=== PATIENT | female | born 1940 | race Caucasian/White ===

== ENCOUNTER 2018-02-15 10:29 | Inpatient (IN) | payer OTHER, MEDICARE ==
[~2018-02-15] VITALS: Ht 160 cm; Wt 84.5 kg
[~2018-02-15 10:29] MED LIST: ALLEGRA ALLERG180 M1 PO; ANAGRELIDE HCL1 MG PO; ASPIR 8181 MG PO; ASPIRIN EC81 M1 PO; HYDROXYUREA500 MG PO; LASIX20 M1 PO; LOPRESSOR100 M1 PO; LOPRESSOR50 M1 PO; LOSARTAN POTASS50 MG PO; METOPROLOL TAR100 MG PO; PANTOPRAZOLE SO40 M1 PO; PANTOPRAZOLE SO40 MG PO; SIMVASTATIN40 M1 PO; SIMVASTATIN40 MG PO; SINGULAIR10 M1 PO; SYNTHROID0.025 MG PO; SYNTHROID75 MCG PO; SYNTHROID88 MCG PO; TYLENOL EXTRA500 M2 PO; WARFARIN SODIUM5 M1 PO
--- NOTE | 2018-02-15 10:42 | ED CARDIAC/CP/PALPITATIONS ---
History of Present Illness General Chief Complaint: General Adult Stated Complaint: SIB JAGDISH FOR EVAL OF? INDIGESTION Source: patient, old records Exam Limitations: no limitations Vital Signs & Intake/Output Vital Signs & Intake/Output ED Intake and Output 02/18 0000 02/17 1200 Intake Total 1000 Output Total Balance 1000 Intake, IV 600 Intake, Oral 400 Allergies Coded Allergies: clams (Mild, NAUSEA 11/08/17) tomato (Mild, NAUSEA 02/15/18) RAW TOMATOS Triage Note: PT SENT IN BY DR. KUMAR. PT STATES SHE HAS HAD INDIGESTION FOR THE PAST FEW DAYS WITH NO RELIEF WITH ANTACID BUT DOES WITH APAP. PT WAS SPEAKING TO AND HE WANTER HER EVALUATED IN ED TO R/O CARDIAC VS INTIGESTION. PT ALSO HAD BACK ACHE AROUND HER WAIST. Triage Nurses Notes Reviewed? yes Onset: Gradual Duration: waxing and waning Timing: recent history Location: epigastric Radiation: back Activities at Onset: none HPI: PT IS A 77 left-sided mastectomy, aortic valve replacement (bovine valve 4 years ago), hypertension, hyperlipidemia, thrombocytosis AND NEW ONSET AFIB X 3 MONTHS AGO ON [place] who presents emergency room with concerns of a four-day history of gradual onset of epigastric indigestion which she states that symptoms usually are worsens after posterior prodromal eating or drinking, patient has radiation to her back pain. Patient states that she tried Pepto-Bismol without improvement of symptoms however Tylenol does improve symptoms last Tylenol was 8 AM today. Patient denies any fever chest pain arm pain jaw pain nausea vomiting diaphoresis leg swelling hemoptysis cough dysuria hematuria vaginal bleeding or discharge. Last bowel movement was in the last 24 hours no blood no melena noted normal bowel movements reported. Denies any exertional chest pain or shortness of breath, denies any leg swelling hemoptysis history of DVT or PE Denies any significant NSAID use Patient drinks one glass of wine a day (Dayan MALLORY,Sohan) Reconcile Medications Acetaminophen (Tylenol Extra Strength) 500 MG TABLET 1 TAB PO DAILY PRN muscle aches (Reported) Amlodipine Bes/Olmesartan Med (Amlodipine-Olmesartan 5-20 MG) 5 MG-20 MG TABLET 1 TAB PO DAILY HEART (Reported) Fexofenadine HCl (Zofia Allergy) 180 MG TABLET 1 TAB PO DAILY PRN nasal allergies (Reported) Fluticasone Propionate 50 MCG/ACTUATION SPRAY.SUSP 2 SPRAY NASB DAILY PRN ALLERGIES (Reported) Furosemide (Lasix) 20 MG TABLET 1 TAB PO DAILY FLUID RETENTION Levothyroxine Sodium (Synthroid) 75 MCG TABLET 1 TAB PO Q48 THYROID HEALTH ( Reported) Levothyroxine Sodium (Synthroid) 88 MCG TABLET 1 TAB PO Q48 THYROID HEALTH Metoprolol Tartrate (Lopressor) 100 MG TABLET 1 TAB PO BID Atrial Fibrilliation Montelukast Sodium (Singulair) 10 MG TABLET 1 TAB PO QHS nasal allergies ( Reported) Pantoprazole Sodium 40 MG TABLET.DR 1 TAB PO DAILY ACID REFLUX Simvastatin (Simvastatin*) 40 MG TABLET 1 TAB PO DAILY HEART HEALTH Warfarin Sodium (Coumadin) 5 MG TABLET 0.5 TAB PO SuTh BLOOD THINNER ( Reported) Warfarin Sodium (Coumadin) 5 MG TABLET 1 TAB PO MoTuWeFrSa BLOOD THINNER ( Reported) (Mary PERRY,Claudia) Past History Travel History Traveled to [place] past 21 day No Medical History Any Pertinent Medical History? see below for history Cardiovascular: AFIB, VALVE REPLACEMENT Renal: chronic kidney disease Musculoskeletal: L MASTECTOMY Endocrine: NONE Blood Disorders: essential thrombocythemia Cancer(s): breast cancer History of MRSA: No History of VRE: No History of CDIFF: No Surgical History Surgical History: VALVE REPLACEMENT Psychosocial History Who do you live with Significant Other Services at Home None What is your primary language German Tobacco Use: Never used ETOH Use: occasional use Illicit Drug Use: denies illicit drug use Family History Hx Contributory? No (Sohan Ugalde) Review of Systems Review of Systems Constitutional: Reports: no symptoms. EENTM: Reports: no symptoms. Respiratory: Reports: no symptoms. Cardiovascular: Reports: no symptoms. GI: Reports: see HPI, abdominal pain. Genitourinary: Reports: no symptoms. Musculoskeletal: Reports: no symptoms. Skin: Reports: no symptoms. Neurological/Psychological: Reports: no symptoms. Hematologic/Endocrine: Reports: no symptoms. Immunologic/Allergic: Reports: no symptoms. All Other Systems: Reviewed and Negative (Sohan Ugalde) Physical Exam Physical Exam General Appearance: no apparent distress, alert, comfortable Head: atraumatic Eyes: Bilateral: normal appearance. Ears, Nose, Throat: hearing grossly normal Neck: normal inspection Respiratory: normal breath sounds, chest non-tender Cardiovascular: regular rate/rhythm, systolic murmur Peripheral Pulses: 2+ radial (R) Gastrointestinal: RUQ AND EPIGASTRIC PAIN NO RIGHT LOWER QUADRANT PAIN NO PERITONEAL SIGNS Extremities: normal inspection Skin: intact, normal color Core Measures ACS in differential dx? Yes CVA/TIA Diagnosis No Sepsis Present: No Sepsis Focused Exam Completed? No (Dayan MALLORY,Sohan) Progress Differential Diagnosis: AMI, aortic dissection, atrial fibrillation, cholecystitis, CHF/pulm edema, costochondritis, hyperkalemia, hypovolemia, hyperthyroid, hyperventilation, intracranial hemorrhage, myocarditis, pancreatitis, pericarditis, pneumonia, pneumothorax, PSVT, pulmonary embolism, PUD/GERD, PVCs/PACs, respiratory failure, sepsis, unstable angina, V-fib/V-Tach, WPW syndrome Plan of Care: Orders Procedure Date/time Status Consistent Carbohydrate 2 02/17 L Complete PROTHROMBIN TIME 02/17 1017 Complete Discharge Patient 02/17 UNK Active Laboratory Tests 02/17/18 1040: PT 39.6 H, INR 3.59 H Patient on initial presentation was resting comfortable at bedside patient has concerned her right upper quadrant and epigastric pain upon palpation, clear lungs auscultation Patient declines pain medications when offered Patient was reevaluated on multiple occasions and continues to deny any medications for pain. After concerns of pancreatitis were noted patient was updated on a blood work ultrasound and CAT scan showed acute pancreatitis aND UPON ADMISSION THERE IS NO ETIOLOGY OF PATIENT'S PANCREATITIS. Discussed admission with patient and family members were aware and agree and have no questions Diagnostic Imaging: Viewed by Me: Ultrasound. Radiology Impression: acute abnormality Initial ED EK BPM,NSR Comments: PATIENT: SYLVIA GEORGE PRESENT AGE: 77 PATIENT ACCOUNT NO: [id number] : 42 LOCATION: [facility] ORDERING PHYSICIAN: Sohan MALLORY SERVICE DATE: 02/15/18124 EXAM TYPE: CAT - CT ABD & PELVIS W/O IV CONTRAS EXAMINATION: CT ABDOMEN AND PELVIS WITHOUT CONTRAST CLINICAL INFORMATION: 77-year-old female patient with epigastric pain, pancreatitis, and history of cancer. COMPARISON: Ultrasound of the abdomen done today. (3 mm pancreatic duct. Normal kidneys. Normal CBD. Normal gallbladder. Normal liver. CTA of the chest on 11/08/2017. TECHNIQUE: Multidetector volumetric imaging was performed from the superior aspect of the liver through the pubic symphysis. Sagittal and coronal reformatted images were obtained on the technologist's workstation. DLP: 536 mGy-cm FINDINGS: GRAPHIC USER INTERFACE DESIGNER: The cardiac silhouette is prominent. Previous sternotomy has been performed and sternotomy wires are intact. An AVR is in place. There is no evidence of intestinal obstruction. LUNG BASES: Mild dependent atelectasis is seen in both lower lobes. Subpleural lymph nodes are present in the minor fissure, unchanged. The 6 mm nodule in the left lower lobe is unchanged. Series 3, image 123. A 5 mm nodule in the right lower lobe posterior cuts were sulcus is unchanged. Series 3, image 66. The 9 mm subpleural nodule in the left lower lobe has resolved. Coronary calcification is present. There is no adenopathy or pleural effusion. LIVER, GALLBLADDER, AND BILIARY TREE: The liver is normal in size, shape, and attenuation. No focal hepatic lesion or biliary ductal dilatation is present. The gallbladder is unremarkable with no evidence of radiopaque gallstones, gallbladder wall thickening, or obvious pericholecystic inflammatory changes. PANCREAS: The head and neck of the pancreas are swollen. There is evidence of early peripancreatic effusion in the pancreatic bed. Effusion dissects into the root of the mesentery. There is reactive thickening of the left anterior aspect of Gerota's fascia. Mild stranding extends into the transverse mesocolon and into the lesser sac. No pseudocyst formation. No extraluminal gas. SPLEEN: Unremarkable. ADRENAL GLANDS: Unremarkable. KIDNEYS AND URETERS: The kidneys are normal in size, shape, and attenuation. No hydronephrosis, hydroureter, or calculi seen. No perinephric stranding. Both renal pelves are extrarenal in location. BLADDER: Well distended and normal. GASTROINTESTINAL TRACT: The small and large bowel are unremarkable. The appendix is unremarkable. No free air. ABDOMINAL WALL: No significant hernia is appreciated. A small fat-containing umbilical hernia is present. LYMPH NODES: Small periaortic lymph nodes of no consequence. VASCULAR: Scattered calcific plaques are seen throughout an otherwise normal-appearing aorta. PELVIC VISCERA: The anteverted uterus is postmenopausal in size and shape. The adnexa are normal. No free fluid is seen. OSSEOUS STRUCTURES: Numerous thoracic osteophytes. Disc disease at T11-T12. IMPRESSION: Acute pancreatitis with spread of pancreatic effusions as described above. No complications present at this time. Lung nodules as described on the CTA of 11/08/2017, no change. DICTATED BY: Sharif Malhotra MD DATE/TIME DICTATED:02/15/181422 ASSOCIATE DEAN:RIVAS PATIENT: SYLVIA GEORGE PRESENT AGE: 77 PATIENT ACCOUNT NO: [id number] : 42 LOCATION: ER ORDERING PHYSICIAN: Sohan MALLORY SERVICE DATE: 02/15/18 EXAM TYPE: US - US-COMPLETE ABDOMEN EXAMINATION: US ABDOMEN COMPLETE CLINICAL INFORMATION: Right upper quadrant and epigastric pain.. COMPARISON: None available. TECHNIQUE: Real-time imaging of the abdominal viscera. FINDINGS: PANCREAS: Mild prominence of the pancreatic duct which measures 0.3 cm at the level of the pancreatic body. The pancreas is otherwise unremarkable. ABDOMINAL AORTA: The proximal segment is normal in caliber. INFERIOR VENA CAVA: Visualized portions are normal. LIVER: Normal. The liver demonstrates normal size, contour and echogenicity. No focal lesion or intrahepatic biliary duct dilatation. GALLBLADDER: Normal. The gallbladder is physiologically distended without evidence of stones, sludge, polyps, wall thickening or pericholecystic fluid. COMMON BILE DUCT: Normal in caliber measuring 0.6 cm in diameter. RIGHT KIDNEY: Normal. No hydronephrosis. No renal calculi or focal parenchymal lesions. The kidney measures 10.5 cm in maximum dimension. LEFT KIDNEY: Normal. No hydronephrosis. No renal calculi or focal parenchymal lesions. The kidney measures 11.2 cm in maximum dimension. SPLEEN: Normal. The spleen measures 9.9 cm in maximum dimension. FREE FLUID: None. IMPRESSION: Mild prominence of the pancreatic duct which measures 0.3 cm at the level of the pancreatic body. Otherwise unremarkable abdominal ultrasound. DICTATED BY: Devante Lau MD DATE/TIME DICTATED:02/15/181244 ASSOCIATE DEAN:RIVAS DATE/TIME TRANSCRIBED:02/15/181244 (Dayan MALLORY,Sohan) Departure Departure Disposition: STILL A PATIENT Condition: Stable Clinical Impression Primary Impression: Pancreatitis Referrals: Angelica Houser MD (PCP/Family) Departure Forms: Customer Survey General Discharge Information Admission Note Spoke With: Viv Kumar MD Documentation of Exam: Documentation of any treatments & extenuating circumstances including Concerns Regarding Discharge (functional status, medication knowledge or non-compliance, living conditions, etc.) that warrant an admission rather than observation: [ Patient requires bowel rest repeat labs IV fluids gastroenterology consultation pain management] (Sohan Ugalde) PA/IT INVESTMENT/PORTFOLIO MANAGER Co-Sign Statement Statement: ED Attending supervision documentation- [X] I saw and evaluated the patient. I have also reviewed all the pertinent lab results and diagnostic results. I agree with the findings and the plan of care as documented in the PA's/IT INVESTMENT/PORTFOLIO MANAGER's documentation. [X] I have reviewed the ED Record and agree with the PA's/IT INVESTMENT/PORTFOLIO MANAGER's documentation. [] Additions or exceptions (if any) to the PAs/IT INVESTMENT/PORTFOLIO MANAGER's note and plan are summarized below: [] (Mary PERRY,Claudia) Critical Care Note Critical Care Note Critical Care Time: non-applicable (Sohan Ugalde) General Discharge Information Admission Note Spoke With: Stacy PERRY,Viv Stewart Documentation of Exam: Documentation of any treatments & extenuating circumstances including Concerns Regarding Discharge (functional status, medication knowledge or non-compliance, living conditions, etc.) that warrant an admission rather than observation: [ Patient requires bowel rest repeat labs IV fluids gastroenterology consultation pain management] Critical Care Note Critical Care Note Critical Care Time: non-applicable
[2018-02-15] MEDS ORDERED: FLUTICASONE PRO16 GM NASB (10:58)
[2018-02-15 11:01] LABS: ABSOLUTE BASOPHIL COUNT 0.1 /CUMM (0.0-0.2); ABSOLUTE EOSINOPHIL COUNT 0.5 /CUMM (0.0-0.7); ABSOLUTE GRANULOCYTE CT 10.9 /CUMM (1.4-6.5); ABSOLUTE LYMPH COUNT 2.7 /CUMM (1.2-3.4); ABSOLUTE MONOCYTE COUNT 0.9 /CUMM (0.10-0.60); BASOPHIL % 0.6 % (0.0-2.0); GRANULOCYTE % 72.1 % (42.2-75.2); MEAN CORPUSCULAR HGB 27.5 PG (27.0-31.0); MEAN CORPUSCULAR HGB CONC 32.3 G/DL (33.0-37.0); MEAN CORPUSCULAR VOLUME 85.3 FL (81.0-99.0); MEAN PLATELET VOLUME 8.2 FL (7.4-10.4); PLATELET COUNT 640 /CUMM (130-400); RBC DISTRIBUTION WIDTH 19.4 % (11.5-14.5); RED BLOOD CELL CT 3.41 /CUMM (4.20-5.40); WHITE BLOOD CELL COUNT 15.1 /CUMM (4.8-10.8)
[2018-02-15] MEDS ORDERED: COUMADIN5 M2 PO ×2 (11:01→11:02)
[2018-02-15] MEDS ORDERED: AMLODIPINE-OLM1 EACH PO (11:02)
[2018-02-15 11:11] LABS: PT 29.3 SEC (9.4-12.5); PTT 35 SEC (25-37)
--- NOTE | 2018-02-15 12:51 | ULTRASOUND REPORT ---
EXAMINATION: US ABDOMEN COMPLETE CLINICAL INFORMATION: Right upper quadrant and epigastric pain.. COMPARISON: None available. TECHNIQUE: Real-time imaging of the abdominal viscera. FINDINGS: PANCREAS: Mild prominence of the pancreatic duct which measures 0.3 cm at the level of the pancreatic body. The pancreas is otherwise unremarkable. ABDOMINAL AORTA: The proximal segment is normal in caliber. INFERIOR VENA CAVA: Visualized portions are normal. LIVER: Normal. The liver demonstrates normal size, contour and echogenicity. No focal lesion or intrahepatic biliary duct dilatation. GALLBLADDER: Normal. The gallbladder is physiologically distended without evidence of stones, sludge, polyps, wall thickening or pericholecystic fluid. COMMON BILE DUCT: Normal in caliber measuring 0.6 cm in diameter. RIGHT KIDNEY: Normal. No hydronephrosis. No renal calculi or focal parenchymal lesions. The kidney measures 10.5 cm in maximum dimension. LEFT KIDNEY: Normal. No hydronephrosis. No renal calculi or focal parenchymal lesions. The kidney measures 11.2 cm in maximum dimension. SPLEEN: Normal. The spleen measures 9.9 cm in maximum dimension. FREE FLUID: None. IMPRESSION: Mild prominence of the pancreatic duct which measures 0.3 cm at the level of the pancreatic body. Otherwise unremarkable abdominal ultrasound.
--- NOTE | 2018-02-15 14:54 | CT SCAN REPORT ---
EXAMINATION: CT ABDOMEN AND PELVIS WITHOUT CONTRAST CLINICAL INFORMATION: 77-year-old female patient with epigastric pain, pancreatitis, and history of cancer. COMPARISON: Ultrasound of the abdomen done today. (3 mm pancreatic duct. Normal kidneys. Normal CBD. Normal gallbladder. Normal liver. CTA of the chest on 11/08/2017. TECHNIQUE: Multidetector volumetric imaging was performed from the superior aspect of the liver through the pubic symphysis. Sagittal and coronal reformatted images were obtained on the technologist's workstation. DLP: 536 mGy-cm FINDINGS: QUALITY CONTROL ANALYST: The cardiac silhouette is prominent. Previous sternotomy has been performed and sternotomy wires are intact. An AVR is in place. There is no evidence of intestinal obstruction. LUNG BASES: Mild dependent atelectasis is seen in both lower lobes. Subpleural lymph nodes are present in the minor fissure, unchanged. The 6 mm nodule in the left lower lobe is unchanged. Series 3, image 123. A 5 mm nodule in the right lower lobe posterior cuts were sulcus is unchanged. Series 3, image 66. The 9 mm subpleural nodule in the left lower lobe has resolved. Coronary calcification is present. There is no adenopathy or pleural effusion. LIVER, GALLBLADDER, AND BILIARY TREE: The liver is normal in size, shape, and attenuation. No focal hepatic lesion or biliary ductal dilatation is present. The gallbladder is unremarkable with no evidence of radiopaque gallstones, gallbladder wall thickening, or obvious pericholecystic inflammatory changes. PANCREAS: The head and neck of the pancreas are swollen. There is evidence of early peripancreatic effusion in the pancreatic bed. Effusion dissects into the root of the mesentery. There is reactive thickening of the left anterior aspect of Gerota's fascia. Mild stranding extends into the transverse mesocolon and into the lesser sac. No pseudocyst formation. No extraluminal gas. SPLEEN: Unremarkable. ADRENAL GLANDS: Unremarkable. KIDNEYS AND URETERS: The kidneys are normal in size, shape, and attenuation. No hydronephrosis, hydroureter, or calculi seen. No perinephric stranding. Both renal pelves are extrarenal in location. BLADDER: Well distended and normal. GASTROINTESTINAL TRACT: The small and large bowel are unremarkable. The appendix is unremarkable. No free air. ABDOMINAL WALL: No significant hernia is appreciated. A small fat-containing umbilical hernia is present. LYMPH NODES: Small periaortic lymph nodes of no consequence. VASCULAR: Scattered calcific plaques are seen throughout an otherwise normal-appearing aorta. PELVIC VISCERA: The anteverted uterus is postmenopausal in size and shape. The adnexa are normal. No free fluid is seen. OSSEOUS STRUCTURES: Numerous thoracic osteophytes. Disc disease at T11-T12. IMPRESSION: Acute pancreatitis with spread of pancreatic effusions as described above. No complications present at this time. Lung nodules as described on the CTA of 11/08/2017, no change.
--- NOTE | 2018-02-15 15:49 | History & Physical ---
Roxanne Novoa 02/15/18 1547: General Information and HPI MD Statement: I have seen and personally examined SYLVIA GEORGE and documented this H&P. The patient is a 77 year old F who presented with a patient stated chief complaint of abdominal pain. Source of Information: patient, family Exam Limitations: no limitations History of Present Illness: Ms George is a 77 year old woman with PMHx of AVR (bovine valve 2013 at [facility]), left breast cancer s/p mastectomy + adj chemo(dx'ed 20 yrs ago), HTN, HLD, ET/MPN (dx'ed 10 yrs ago, initially on Hydroxyurea, and was started on Anagrelide 06/2017), chronic anemia 2/2 hydroxyurea/anagrelide, paroxysmal atrial fibrillation ( dx'ed 10/2017 on Warfarin), who came to the hospital with a chief concern of "indigestion" that started 4 days ago. She was in her usual state of health until 4 days ago, and started " indigestion " and vague abdominal discomfort, no aggravating factors but dicomfort relieved after taking protonix+tylenol. She did not have any fever. She had her breakfast the am of admission, and felt that she had nausea when she called her remote sensing specialist who advised her to go to the ER. She did not have any cough, fever, dyspnea or palpitations. No jaundice, carmina, or brbpr and no changes in apetite. Reported chronic pedal edema. Reported occassional alcohol( a glass of wine ) use 2-3 x/wk, no tobacco use, or has history of gall stones. Reported that she was started on anagrelide in , and frequency was increased recently. Allergies/Medications Allergies: Coded Allergies: clams (Mild, NAUSEA 11/08/17) tomato (Mild, NAUSEA 02/15/18) RAW TOMATOS Home Med list Acetaminophen (Tylenol Extra Strength) 500 MG TABLET 1 TAB PO DAILY PRN muscle aches (Reported) Amlodipine Bes/Olmesartan Med (Amlodipine-Olmesartan 5-20 MG) 5 MG-20 MG TABLET 1 TAB PO DAILY HEART (Reported) Anagrelide HCl 1 MG CAPSULE 1 CAP PO TID THROMBOCYTOSIS (Reported) Fexofenadine HCl (Zofia Allergy) 180 MG TABLET 1 TAB PO DAILY PRN nasal allergies (Reported) Fluticasone Propionate 50 MCG/ACTUATION SPRAY.SUSP 2 SPRAY NASB DAILY PRN ALLERGIES (Reported) Furosemide (Lasix) 20 MG TABLET 1 TAB PO DAILY FLUID RETENTION Levothyroxine Sodium (Synthroid) 75 MCG TABLET 1 TAB PO Q48 THYROID HEALTH ( Reported) Levothyroxine Sodium (Synthroid) 88 MCG TABLET 1 TAB PO Q48 THYROID HEALTH Metoprolol Tartrate (Lopressor) 100 MG TABLET 1 TAB PO BID Atrial Fibrilliation Montelukast Sodium (Singulair) 10 MG TABLET 1 TAB PO QHS nasal allergies ( Reported) Pantoprazole Sodium 40 MG TABLET.DR 1 TAB PO DAILY ACID REFLUX Simvastatin (Simvastatin*) 40 MG TABLET 1 TAB PO DAILY HEART HEALTH Warfarin Sodium (Coumadin) 5 MG TABLET 0.5 TAB PO SuTh BLOOD THINNER ( Reported) Warfarin Sodium (Coumadin) 5 MG TABLET 1 TAB PO MoTuWeFrSa BLOOD THINNER ( Reported) Past History Travel History Traveled to [place] past 21 day No Medical History Cardiovascular: AFIB, VALVE REPLACEMENT Renal: chronic kidney disease Musculoskeletal: L MASTECTOMY Endocrine: NONE Blood Disorders: essential thrombocythemia Cancer(s): breast cancer History of MRSA: No History of VRE: No History of CDIFF: No Surgical History Surgical History: VALVE REPLACEMENT Past Family/Social History Family History Relations & Conditions if any MOTHER (heart disease). Psychosocial History Services at Home: None ETOH Use: occasional use Illicit Drug Use: denies illicit drug use Functional Ability ADLs Independent: dressing, eating, toileting, bathing. Ambulation: independent IADLs Unknown: shopping, housework, finances, food prep, telephone, transportation, medication admin. Review of Systems Review of Systems Constitutional: Reports: see HPI. EENTM: Denies: icterus, epistaxis. Cardiovascular: Reports: peripheral edema. Denies: chest pain, orthopena, palpitations. Respiratory: Denies: cough, short of breath. GI: Reports: nausea. Denies: abdominal pain, distention, melena, bloody stool, changes in stool, vomiting, steatorrhea. Genitourinary: Denies: dysuria. Musculoskeletal: Denies: back pain. Skin: Denies: change in skin color. Hematologic/Endocrine: Denies: bruising. Exam & Diagnostic Data Last 24 Hrs of Vital Signs/I&O Vital Signs Date Time Temp Pulse Resp B/P B/P Pulse O2 O2 Flow FiO2 Mean Ox Delivery Rate 02/15 1711 96.8 87 19 183/85 96 Room Air 02/15 1232 98.2 89 20 135/80 99 Room Air 02/15 1039 98.0 98 18 149/80 99 Room Air Intake & Output 02/15 1600 02/15 0800 02/15 0000 Intake Total Output Total Balance Patient 180 lb Weight Weight Reported by Patient Measurement Method Physical Exam General Appearance Alert, Oriented X3, Cooperative, No Acute Distress Skin No Rashes, No Breakdown, No Significant Lesion Skin Temp/Moisture Exam: Warm/Dry Sepsis Skin Exam (color): Normal for Ethnicity HEENT Atraumatic, PERRLA, EOMI, Mucous Membr. moist/pink Neck Supple, No JVD, No thryomegaly, +2 Carotid Pulse wo Bruit Lymphatic Axillary nl, Cervical nl Cardiovascular Regular Rate, Normal S1, Normal S2, systolic murmur Lungs Normal Air Movement Abdomen Normal Bowel Sounds, Soft, No Hepatospenomegaly, No Masses, abdominal tenderness on deep palpation in epigastric region Neurological Normal Speech, Strength at 5/5 X4 Ext, Normal Tone, Sensation Intact, Cranial Nerves 3-12 NL Extremities No Clubbing, No Cyanosis, Normal Pulses, No Tenderness/Swelling, pedal edema 2+ Vascular Pulses Symmetrical Sepsis Peripheral Pulse Location: Dorsalis Pedis Sepsis Peripheral Pulse Exam: Normal Sepsis Cap Refill Exam: <2 Sec Last 24 Hrs of Labs/Jhony: Laboratory Tests 02/15/18 1050: Anion Gap 13, Estimated GFR 54 L, BUN/Creatinine Ratio 23.0, Glucose 215 H, Lactic Acid 1.2, Calcium 9.0, Total Bilirubin 0.5, AST 22, ALT 17, Alkaline Phosphatase 67, Lactate Dehydrogenase 738 H, Troponin I < 0.01, Total Protein 5.9 L, Albumin 3.3 L, Globulin 2.6, Albumin/Globulin Ratio 1.3, Triglycerides 88, Cholesterol 116, LDL Cholesterol, Calc 47 L, HDL Cholesterol 52, Cholesterol/HDL Ratio 2.2, Amylase 276 H, Lipase 4936 H, PT 29.3 H, INR 2.66 H, APTT 35, CBC w Diff MAN DIFF ORDERED, RBC 3.41 L, MCV 85.3, MCH 27.5, MCHC 32.3 L, RDW 19.4 H, MPV 8.2, Gran % 72.1, Lymphocytes % 18.1 L, Monocytes % 6.2, Eosinophils % 3.0, Basophils % 0.6, Absolute Granulocytes 10.9 H, Absolute Lymphocytes 2.7, Absolute Monocytes 0.9 H, Absolute Eosinophils 0.5, Absolute Basophils 0.1, Platelet Estimate , Polychromasia , Hypochromic-Microcytic 1+ , Poikilocytosis 2+, Anisocytosis 2+, Ovalocytes Diagnostic Data EKG Results Normal sinus rhythm, heart rate 79, left axis deviation, left anterior fascicular block, no ST-T wave changes. Other Results CT abdomen and pelvis without contrast: LIVER, GALLBLADDER, AND BILIARY TREE: The liver is normal in size, shape, and attenuation. No focal hepatic lesion or biliary ductal dilatation is present. The gallbladder is unremarkable with no evidence of radiopaque gallstones, gallbladder wall thickening, or obvious pericholecystic inflammatory changes. PANCREAS: The head and neck of the pancreas are swollen. There is evidence of early peripancreatic effusion in the pancreatic bed. Effusion dissects into the root of the mesentery. There is reactive thickening of the left anterior aspect of Gerota's fascia. Mild stranding extends into the transverse mesocolon and into the lesser sac. No pseudocyst formation. No extraluminal gas. Acute pancreatitis with spread of pancreatic effusions as described above. No complications present at this time. Lung nodules as described on the CTA of 11/08/2017, no change. US - US-COMPLETE ABDOMEN Mild prominence of the pancreatic duct which measures 0.3 cm at the level of the pancreatic body. Otherwise unremarkable abdominal ultrasound. Assessment/Plan Assessment: Ms George is a 77 year old woman with PMHx of AVR (bovine valve 2013 at [facility]), left breast cancer s/p mastectomy + adj chemo(dx'ed 20 yrs ago), HTN, HLD, ET/MPN (dx'ed 10 yrs ago, initially on Hydroxyurea, and was started on Anagrelide 06/2017), chronic anemia 2/2 hydroxyurea/anagrelide, paroxysmal atrial fibrillation ( dx'ed 10/2017 on Warfarin), who came to the hospital with a chief concern of "indigestion" that started 4 days ago likely due to acute pancreatitis, without any clear etiology at this time. At the time of admission-temperature 98.0, pulse rate 98, respiration 18, blood pressure 149/80, 99% on room air. Pertinent lab findings: WBC 15.1 (without any granulocytosis), hemoglobin 9.4 (baseline around 9.5), platelets 640 (chronic thrombocytosis), sodium 139, potassium 4.7, BUN 23, serum creatinine 1.1, glucose 215, lactic acid 1.2, total bilirubin 0.5, AST 22, ALT 17, INR 2.66. troponin I-0.01 amylase 276, lipase 4936, CT scan abdomen: PANCREAS: The head and neck of the pancreas are swollen. There is evidence of early peripancreatic effusion in the pancreatic bed. Effusion dissects into the root of the mesentery. There is reactive thickening of the left anterior aspect of Gerota's fascia. Mild stranding extends into the transverse mesocolon and into the lesser sac. No pseudocyst formation. No extraluminalA. cute pancreatitis with spread of pancreatic effusions as described above. No complications present at this time. Last echocardiogram done in October 2017 revealed left vent Ejection fraction of about 55%, with mild left atrial dilatation. She also has mild mitral stenosis and moderate tricuspid regurgitation with right ventricle are systolic pressure about 50 mmHg. Problem list: #1 acute pancreatitis #2 essential thrombocytosis #3 hypothyroidism #4 atrial fibrillation (paroxysmal) #5 history of hypothyroidism #6 hypertension #7 hyperlipidemia #8 leukocytosis- likely MPN. #9 lung nodules Etiology in her case with elevated lipase, abdominal discomfort and positive findings on CAT scan suggestive of pancreatic edema likely point towards acute pancreatitis. The reason for this pancreatitis is unclear at this time, with no history of alcohol, smoking, gallstones or hypertriglyceridemia contributing to pathogenesis. It is likely that anagrelide could be contributing to pancreatitis in her case, but incidence of pancreatitis in the setting is unclear to us. Other causes such as combination of hyperlipidemia and hyperglycemia could also be contributing to pancreatitis. BISAP score is one. Also signficance of pancreatic dilation w/o cbd dilation is unclear, but acute pancreatitis could cause the dilation to clear the secretions. In regards to her pedal edema, this could most likely be due to elevated right heart pressures. Plan: #1 start intravenous fluids, with 100 mL an hour. Reassess the need for more fluids. #2 she should get up to 3-4 L in the first 24 hours, but considering her cardiac history should give her fluids with caution. #3 continue her metoprolol, to avoid rebound tachycardia #4 she should be nothing by mouth for now, but would advance to clear liquid diet as the patient tolerates. #5 given the history of atrial fibrillation, she should be admitted to telemetry. #6 cardiology consult to be obtained. #7 continue Coumadin at her home dosing. INR 2.66. It should be kept in mind, that there could be a complication of hemorrhagic pancreatitis. Cullens and mccarthy turners negative at this time. #8 continue her home dose of levothyroxine. #9 for now hold amlodipine, Lasix and ARB. Resume as the BP allows. #10 GI consult to be obtained in the a.m. #11 if she develops any respiratory decompensation, need for fluids to be reassessed and she needs to be evaluated clinically. #12. Check LDH to calculate Vienna score #13 Accu-Cheks given her elevated blood glucose. #14 hold for anagrelide for now. Defer the decision to the senior engineering technician to restart. #15 check CBCs in the a.m. #16 adequate pain control, with tramadol and Tylenol. Avoid morphine in pancreatitis. #17 given history of valvular disease, and atrial fibrillation she should be monitored on telemetry. If she improves in the next 24-48hrs, telemetry could be discontinued. Housekeeping: #1 DVT prophylaxis-Coumadin #2 GI prophylaxis-protonix #3 CODE STATUS-full code #4 medication reconciliation-done As Ranked By This Provider Problem List: 1. Pancreatitis 2. Anemia Core Measures/Misc (08/14) Acute Coronary Syndrome ACS Diagnosis: No Congestive Heart Failure Congestive Heart Failure Diagnosis No Cerebrovascular Accident CVA/TIA Diagnosis: No VTE (View Protocol) VTE Risk Factors No risk factors No Mechanical VTE Prophylaxis d/t N/A MechProphylax Ordered No VTE Pharm Prophylaxis d/t NA PharmProphylax ordered Sepsis (View protocol) Sepsis Present: No Viv Kumar MD 02/15/18 1638: Attending MD Review Statement Attending Statement Attending MD Statement: examined this patient, discuss w/resident/PA/GOLD LETTERER, agreed w/resident/PA/GOLD LETTERER, reviewed EMR data (avail), discussed with nursing, discussed with case mgmt, reviewed images Attending Assessment/Plan: 77-year-old female fairly extensive past medical history including atrial fibrillation on Coumadin, bovine aortic valve replacement, [id number] mitral stenosis, hypertension and essential thrombocytosis on anagrelide. She is now comes in with what appears to be acute pancreatitis of unclear etiology. She has symptoms of epigastric and right upper quadrant discomfort, an elevated lipase and a CT that shows evidence of pancreatitis. She has no gallstones or biliary disease on imaging. She doesn't have any alcohol abuse and her triglyceride level appears normal. The possibility of medication-induced pancreatitis obviously exists. At this point will have to keep her nothing by mouth, hydrate her but be careful given her underlying valvular conditions, will have to use IV metoprolol if her rate becomes an issue. We'll get cardiology on board given all of her cardiac meds. Will follow her clinically and start clear liquids when her symptoms are better. She appears to have chronic leukocytosis with a left shift and will need to watch that closely. As far as her anticoagulation goes given her chads score she needs the anticoagulation and her INR is therapeutic today. However obviously with the pancreatitis there is always a risk for hemorrhage and will need to get GI on board given the risks and the benefits.
--- NOTE | 2018-02-15 16:02 | Admission Certification ---
Admission Certification Certification Statement - As attending physician, I certify that at the time of - admission, based on clinical presentation, severity of - symptoms, need for further diagnostic testing and - therapeutic interventions, and risk of adverse outcomes - without in-hospital treatment, in my clinical assessment, - this patient requires an acute hospital stay for a minimum - of two nights or longer. I have also considered psychsocial - factors such as support system, advanced age, financial - issues, cognitive issues, and failed out-patient treatments, - past re-admission history, safety of patient, and lack of - compliance as applicable. Specific rationale supporting this admission is: Acute pancreatitis in patient with A. fib, [id number] MITRAL STENOSIS and aortic valve replacement.
[2018-02-15 18:11] VITALS: BP 170/87
[2018-02-15 22:32] VITALS: BP 148/60
[2018-02-16 06:34] VITALS: BP 132/72
[2018-02-16 08:20] LABS: PT 37.4 SEC (9.4-12.5)
[2018-02-16 08:32] LABS: ABSOLUTE BASOPHIL COUNT 0.1 /CUMM (0.0-0.2); ABSOLUTE EOSINOPHIL COUNT 0.5 /CUMM (0.0-0.7); ABSOLUTE GRANULOCYTE CT 9.6 /CUMM (1.4-6.5); ABSOLUTE LYMPH COUNT 2.7 /CUMM (1.2-3.4); ABSOLUTE MONOCYTE COUNT 0.9 /CUMM (0.10-0.60); BASOPHIL % 0.6 % (0.0-2.0); EOSINOPHIL % 3.6 % (0-5); GRANULOCYTE % 69.9 % (42.2-75.2); HEMATOCRIT 28.1 % (37-47); MEAN CORPUSCULAR HGB 28.2 PG (27.0-31.0); MEAN CORPUSCULAR HGB CONC 32.9 G/DL (33.0-37.0); MEAN CORPUSCULAR VOLUME 85.8 FL (81.0-99.0); MEAN PLATELET VOLUME 8.5 FL (7.4-10.4); PLATELET COUNT 594 /CUMM (130-400); RBC DISTRIBUTION WIDTH 19.8 % (11.5-14.5); RED BLOOD CELL CT 3.27 /CUMM (4.20-5.40); WHITE BLOOD CELL COUNT 13.7 /CUMM (4.8-10.8)
--- NOTE | 2018-02-16 10:09 | Cons- Cardiology ---
General Information and HPI Consulting Request Date of Consult: 02/16/18 Requested By: Vinny Thomas MD Reason for Consult: Bioprosthetic Aortic valve Source of Information: patient Exam Limitations: no limitations History of Present Illness: Ms Olivier is a 77 year old woman with PMHx of AVR (bovine valve 2013 at [facility]), left breast cancer s/p mastectomy + adj chemo(dx'ed 20 yrs ago), HTN, HLD, ET/MPN (dx'ed 10 yrs ago, initially on Hydroxyurea, and was started on Anagrelide 06/2017), chronic anemia 2/2 hydroxyurea/anagrelide, paroxysmal atrial fibrillation ( dx'ed 10/2017 on Warfarin), who came to the hospital with a chief concern of "indigestion" that started 4 days ago. She was in her usual state of health until 4 days ago, and started " indigestion " and vague abdominal discomfort, no aggravating factors but dicomfort relieved after taking protonix+tylenol. She did not have any fever. She had her breakfast the am of admission, and felt that she had nausea when she called her obstetric anaesthetist who advised her to go to the ER. She did not have any cough, fever, dyspnea or palpitations The above history was obtained by the admitting resident. She concurs with abdominal pain for the past 2-3 days. She has been admitted with acute pancreatitis. There is no evidence of gallstones. Education is suspect. Allergies/Medications Allergies: Coded Allergies: clams (Mild, NAUSEA 11/08/17) tomato (Mild, NAUSEA 02/15/18) RAW TOMATOS Home Med List: Acetaminophen (Tylenol Extra Strength) 500 MG TABLET 1 TAB PO DAILY PRN muscle aches (Reported) Amlodipine Bes/Olmesartan Med (Amlodipine-Olmesartan 5-20 MG) 5 MG-20 MG TABLET 1 TAB PO DAILY HEART (Reported) Anagrelide HCl 1 MG CAPSULE 1 CAP PO TID THROMBOCYTOSIS (Reported) Fexofenadine HCl (Zofia Allergy) 180 MG TABLET 1 TAB PO DAILY PRN nasal allergies (Reported) Fluticasone Propionate 50 MCG/ACTUATION SPRAY.SUSP 2 SPRAY NASB DAILY PRN ALLERGIES (Reported) Furosemide (Lasix) 20 MG TABLET 1 TAB PO DAILY FLUID RETENTION Levothyroxine Sodium (Synthroid) 75 MCG TABLET 1 TAB PO Q48 THYROID HEALTH ( Reported) Levothyroxine Sodium (Synthroid) 88 MCG TABLET 1 TAB PO Q48 THYROID HEALTH Metoprolol Tartrate (Lopressor) 100 MG TABLET 1 TAB PO BID Atrial Fibrilliation Montelukast Sodium (Singulair) 10 MG TABLET 1 TAB PO QHS nasal allergies ( Reported) Pantoprazole Sodium 40 MG TABLET.DR 1 TAB PO DAILY ACID REFLUX Simvastatin (Simvastatin*) 40 MG TABLET 1 TAB PO DAILY HEART HEALTH Warfarin Sodium (Coumadin) 5 MG TABLET 0.5 TAB PO SuTh BLOOD THINNER ( Reported) Warfarin Sodium (Coumadin) 5 MG TABLET 1 TAB PO MoTuWeFrSa BLOOD THINNER ( Reported) Current Medications: Current Medications Sig/Benita Start time Last Medication Dose Route Stop Time Status Admin Acetaminophen 650 MG Q8P PRN 02/15 1715 AC 02/16 PO 0439 Acetaminophen 0 .STK-MED ONE 02/15 1340 DC IV Acetaminophen 1,000 MG ONCE ONE 02/15 1215 DC 02/15 N/A 1 UNIT IV 02/15 1229 1340 Atorvastatin Calcium 40 MG 1700 02/16 1700 DC PO Atorvastatin Calcium 40 MG 1700 02/15 2215 AC PO Fluticasone 2 SPRAY DAILY PRN 02/15 1715 AC Propionate DARYN Heparin Sodium 5,000 UNIT Q8 02/15 2200 CAN (Porcine) SC Lactated Ringer's 1,000 ML Q10H 02/16 0945 AC IV Levothyroxine Sodium 0.088 MG Q48@0700 02/17 0700 AC PO Levothyroxine Sodium 0.075 MG Q48@0700 02/16 0700 AC 02/16 PO 0601 Metoprolol Tartrate 100 MG BID 02/15 2200 AC 02/16 PO 0807 Montelukast Sodium 10 MG AT BEDTIME 02/15 2200 AC 02/15 PO 2053 Omeprazole 40 MG DAILY AC 02/16 0700 AC 02/16 PO 0600 Sodium Chloride 250 ML .Q1H 02/16 0845 DC IV Sodium Chloride 1,000 ML Q10H 02/16 0530 AC 02/16 IV 02/16 1529 0531 Sodium Chloride 1,000 ML Q10H 02/15 1715 DC 02/15 IV 02/16 0314 1810 Sodium Chloride 1,000 ML ONCE ONE 02/15 1545 DC 02/15 IV 02/15 1944 1549 Sodium Chloride 1,000 ML BOLUS ONE 02/15 1215 DC 02/15 IV 02/15 1414 1340 Tramadol HCl 50 MG Q8P PRN 02/15 1715 AC PO Warfarin Sodium 5 MG COUMADIN 1700 ONE 02/15 1715 DC 02/15 PO 02/15 1716 1814 Review of Systems Review of Systems Constitutional: Denies: no symptoms. EENTM: Denies: no symptoms. Cardiovascular: Denies: no symptoms. Respiratory: Denies: no symptoms. GI: Reports: no symptoms. Genitourinary: Denies: no symptoms. Musculoskeletal: Denies: no symptoms. Skin: Denies: no symptoms. Neurological/Psychological: Denies: no symptoms. Hematologic/Endocrine: Denies: no symptoms. Immunologic/Allergic: Denies: no symptoms. 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 Psychosocial History Where Do You Live? Home Services at Home: None Smoking Status: Never Smoked ETOH Use: occasional use Illicit Drug Use: denies illicit drug use Functional Ability ADLs Independent: dressing, eating, toileting, bathing. Ambulation: independent IADLs Unknown: shopping, housework, finances, food prep, telephone, transportation, medication admin. Exam & Diagnostic Data Vital Signs and I&O Vital Signs Date Time Temp Pulse Resp B/P B/P Pulse O2 O2 Flow FiO2 Mean Ox Delivery Rate 02/16 0807 75 136/72 02/16 0634 98.2 76 18 132/72 95 Room Air 02/16 0000 Room Air 02/15 2232 98.0 92 16 148/60 96 02/15 2053 90 150/84 02/15 1811 97.6 83 18 170/87 100 Room Air 02/15 1800 97 Room Air 02/15 171 96.8 87 19 183/85 96 Room Air 02/15 1232 98.2 89 20 135/80 99 Room Air 03/21 1039 98.0 98 18 149/80 99 Room Air Intake & Output 02/16 1600 02/16 0800 02/16 0000 02/15 1600 02/15 0800 02/15 0000 Intake Total 800 150 Output Total 450 Balance 800 -300 Intake, IV 800 Intake, Oral 150 Number 0 Bowel Movements Output, Urine 450 Patient 186 lb 180 lb Weight Weight Bed scale Reported by Patient Measurement Method Physical Exam: Gen. exam patient appeared comfortable Head normocephalic atraumatic Eyes sclera anicteric conjunctiva showed no pallor extraocular muscles were normal Chest lungs were clear Heart irregular rhythm with a 1/6 systolic murmur Abdomen is soft nontender no organomegaly bowel sounds normal. Abdomen is nontender now but on admission apparently she was tender Extremities no clubbing cyanosis or edema Neurological no gross motor or sensory deficits Labs/Jhony Results: Laboratory Tests 02/16 02/16 02/15 0654 0653 1050 Chemistry Sodium (137 - 145 mmol/L) 142 139 Potassium (3.5 - 5.1 mmol/L) 4.7 4.7 Chloride (98 - 107 mmol/L) 109 H 105 Carbon Dioxide (22 - 30 mmol/L) 21 L 21 L Anion Gap (5 - 16) 12 13 BUN (7 - 17 mg/dL) 18 H 23 H Creatinine (0.5 - 1.0 mg/dL) 0.9 1.0 Estimated GFR (>60 ml/min) > 60 54 L BUN/Creatinine Ratio (7 - 25 %) 20.0 23.0 Glucose (65 - 99 mg/dL) 215 H Lactic Acid (0.7 - 2.1 mmol/L) 1.2 Calcium (8.4 - 10.2 mg/dL) 9.0 Total Bilirubin (0.2 - 1.3 mg/dL) 0.5 AST (14 - 36 U/L) 22 ALT (9 - 52 U/L) 17 Alkaline Phosphatase (<127 U/L) 67 Lactate Dehydrogenase (313 - 618 U/L) 738 H Troponin I (< 0.11 ng/ml) < 0.01 Total Protein (6.3 - 8.2 g/dL) 5.9 L Albumin (3.5 - 5.0 g/dL) 3.3 L Globulin (1.9 - 4.2 gm/dL) 2.6 Albumin/Globulin Ratio (1.1 - 2.2 %) 1.3 Triglycerides (<150 mg/dL) 88 Cholesterol (<200 MG/DL) 116 LDL Cholesterol, Calc (65 - 129 MG/DL) 47 L HDL Cholesterol (40 - 60 mg/dL) 52 Cholesterol/HDL Ratio (0.00 - 4.23 %) 2.2 Amylase (30 - 110 U/L) 276 H Lipase (23 - 300 U/L) 4936 H Coagulation PT (9.4 - 12.5 SEC) 37.4 H 29.3 H INR (0.90 - 1.19) 3.39 H 2.66 H APTT (25 - 37 SEC) 35 Hematology CBC w Diff Pending MAN DIFF ORDERED WBC (4.8 - 10.8 /CUMM) Pending 15.1 H RBC (4.20 - 5.40 /CUMM) Pending 3.41 L Hgb (12.0 - 16.0 G/DL) Pending 9.4 L Hct (37 - 47 %) Pending 29.0 L MCV (81.0 - 99.0 FL) Pending 85.3 MCH (27.0 - 31.0 PG) Pending 27.5 MCHC (33.0 - 37.0 G/DL) Pending 32.3 L RDW (11.5 - 14.5 %) Pending 19.4 H Plt Count (130 - 400 /CUMM) Pending 640 H MPV (7.4 - 10.4 FL) Pending 8.2 Gran % (42.2 - 75.2 %) 72.1 Lymphocytes % (20.5 - 51.1 %) 18.1 L Monocytes % (1.7 - 9.3 %) 6.2 Eosinophils % (0 - 5 %) 3.0 Basophils % (0.0 - 2.0 %) 0.6 Absolute Granulocytes (1.4 - 6.5 /CUMM) 10.9 H Absolute Lymphocytes (1.2 - 3.4 /CUMM) 2.7 Absolute Monocytes (0.10 - 0.60 /CUMM) 0.9 H Absolute Eosinophils (0.0 - 0.7 /CUMM) 0.5 Absolute Basophils (0.0 - 0.2 /CUMM) 0.1 Platelet Estimate (ADEQUATE) Polychromasia Hypochromic-Microcytic 1+ Poikilocytosis 2+ Anisocytosis 2+ Ovalocytes Diagnostic Data EKG Results Sinus rhythm mild left ventricular hypertrophy Other Results Acute pancreatitis with spread of pancreatic effusions as described above. No complications present at this time. Lung nodules as described on the CTA of 11/08/2017, no change Assessment/Plan Assessment/Plan In summary this 77-year-old female was admitted with the following problems #1 acute pancreatitis probably drug-related. I doubt amlodipine/olmersartan that she is taking for hypertension would cause this. #2. Status post aortic bioprosthetic valve. Normal left ventricular systolic function. #3. Paroxysmal atrial fibrillation. Now in sinus rhythm #4. On oral anticoagulation with warfarin PT/INR is therapeutic #5. Hypertension #6. Hyperlipidemia #7. Thrombocytosis She has normal left ventricular systolic function with probably secondary pulmonary hypertension related to hypertensive heart disease. There is no specific cardiac recommendation at this time. Consult Acknowledgment - Thank you for your consult request.
--- NOTE | 2018-02-16 10:27 | PN- Housestaff ---
Oksana PERRY,Isabelle 02/16/18 1027: Subjective Follow-up For: #1 acute pancreatitis #2 essential thrombocytosis #3 hypothyroidism #4 atrial fibrillation (paroxysmal) #5 history of hypothyroidism #6 hypertension #7 hyperlipidemia #8 leukocytosis- likely MPD. Tele-Events Since Last Visit: Normal sinus rhythm, 7281, QRS 0.08, MD 0.22, no overnight events Subjective: Patient was seen and examined at bedside, no overnight events, complaints of indigestion however she feels more hungry today, will advance her diet to clear liquid and see if she can tolerate as per GI recommendation Review of Systems Constitutional: Reports: see HPI. Objective Last 24 Hrs of Vital Signs/I&O Vital Signs Date Time Temp Pulse Resp B/P B/P Pulse O2 O2 Flow FiO2 Mean Ox Delivery Rate 02/16 0807 75 136/72 02/16 0634 98.2 76 18 132/72 95 Room Air 02/16 0000 Room Air 02/15 2232 98.0 92 16 148/60 96 02/15 2053 90 150/84 02/15 1811 97.6 83 18 170/87 100 Room Air 02/15 1800 97 Room Air 02/15 1711 96.8 87 19 183/85 96 Room Air Intake & Output 02/16 1600 02/16 0800 02/16 0000 Intake Total 800 150 Output Total 450 Balance 800 -300 Intake, IV 800 Intake, Oral 150 Number 0 Bowel Movements Output, Urine 450 Patient 186 lb Weight Weight Bed scale Measurement Method Physical Exam General Appearance: Alert, Oriented X3, Cooperative, No Acute Distress HEENT: Atraumatic, PERRLA, EOMI, Mucous Membr. moist/pink Neck: Supple, No JVD Cardiovascular: Normal S1, Normal S2, No Murmurs Lungs: Clear to Auscultation Abdomen: Normal Bowel Sounds, Soft, No Tenderness Neurological: Normal Gait, Normal Speech, Strength at 5/5 X4 Ext, Normal Tone, Sensation Intact, Cranial Nerves 3-12 NL Extremities: No Clubbing, No Cyanosis, No Edema Vascular: Normal Pulses Assessment/Plan Assessment: 77 year old woman with PMHx of AVR (bovine valve 2013 at [facility]), left breast cancer s/p mastectomy + adj chemo(dx'ed 20 yrs ago), HTN, HLD, ET/ MPN (dx'ed 10 yrs ago, initially on Hydroxyurea, and was started on Anagrelide ), chronic anemia 2/2 hydroxyurea/anagrelide, paroxysmal atrial fibrillation ( dx'ed 10/2017 on Warfarin), who came to the hospital with a chief concern of "indigestion" that started 4 days ago likely due to acute pancreatitis, most likely secondary to anagrelide, CT abdomen showed swollen head and neck of the pancreas, with evidence of elevated pancreatic fluid collection, effusion dissects into the root of the mesentery Problem list: #acute pancreatitis-possibly side effect of anagrelide #essential thrombocytosis #hypothyroidism #atrial fibrillation (paroxysmal) #history of hypothyroidism #hypertension #hyperlipidemia #leukocytosis- likely MPN. #lung nodules Plan: #Continue to monitor on telemetry #Continue IV fluids, switch to lactated Ringer at a rate of 100 cc/hour #continue her metoprolol, to avoid rebound tachycardia #Advance diet as tolerated. #Cardiology and GI recommendation appreciated #Hold Coumadin at her home dosing. INR 2.66. It should be kept in mind, that there could be a complication of hemorrhagic pancreatitis. Cullens and fabio turners negative at this time. #continue her home dose of levothyroxine. #Restart amlodipine, Lasix and ARB. Resume as the BP allows. #Follow-up on GI recommendation # if she develops any respiratory decompensation, need for fluids to be reassessed and she needs to be evaluated clinically. #Fingerstick glucose were normal #Oncology consult was placed however Dr. Young over the phone recommended to speak directly to her can bander operator Dr.Glen Tidwell to discuss with him about discontinuing her anagrelide #hold for anagrelide, had a discussion with her can bander operator over the phone and he agrees, will follow up outpatient #Follow-up on CBCs in the a.m. #adequate pain control, with tramadol and Tylenol. Avoid morphine in pancreatitis DVT prophylaxis-ALPS GI prophylaxis-protonix CODE STATUS-full code Problem List: 1. Pancreatitis Pain Ratin Pain Location: N/A Pain Goal: Remain pain free Pain Plan: PATHWAY Tomorrow's Labs & Rationales: CBC BEP INR Yousuf Thomasp 02/16/18 1353: Attending MD Review Statement Attending Statement Attending MD Statement: examined this patient, discuss w/resident/PA/TILE MECHANIC, agreed w/resident/PA/TILE MECHANIC, reviewed EMR data (avail), discussed with nursing, discussed with case mgmt Attending Assessment/Plan: Acute panceratitis- doing ok on liquid diet. Pt on anagrelide for essential thrombocytosis. Pts dose was recently increased on 12/29/17. Cont to hold it for now and await final oncology recommendations. Hold coumadin . Get A1c level. GI consult appreciated. d/w pt the care plan. Will watch closely for fevers or hemorrhagic transformation.
--- NOTE | 2018-02-16 12:38 | Cons- Gastroenterology ---
General Information and HPI Consulting Request Date of Consult: 02/16/18 Requested By: Vinny Thomas MD Reason for Consult: Acute pancreatitis Source of Information: patient Exam Limitations: no limitations History of Present Illness: Ms. Olivier is a 77 year old female with a past medical history of aortic valve replacement in 2013. She had not required any anticoagulation until October of this year when she developed paroxysmal atrial fibrillation and was started on Coumadin. She was in her usual state of health until approximately a week ago when she developed indigestion. Initially she tried an acid and Tylenol with partial relief. However when her symptoms returned she spoke to her metal stud framer who told her to go to the [facility] ED. She reported that she also had nausea after eating and mild upper abdominal pain. Additional past medical history of significance is essential thrombocytosis which was treated initially with hydroxyurea but was switched to anagrelide 1 mg BID and which was increased in dosage early in December. She also has chronic anemia and when last admissed to [facility] in October her Hct was around 25. On admissin she had a CT Scan of the abdomen and pelvis the results of which are as follows. LIVER, GALLBLADDER, AND BILIARY TREE: The liver is normal in size, shape, and attenuation. No focal hepatic lesion or biliary ductal dilatation is present. The gallbladder is unremarkable with no evidence of radiopaque gallstones, gallbladder wall thickening, or obvious pericholecystic inflammatory changes. PANCREAS: The head and neck of the pancreas are swollen. There is evidence of early peripancreatic effusion in the pancreatic bed. Effusion dissects into the root of the mesentery. There is reactive thickening of the left anterior aspect of Gerota's fascia. Mild stranding extends into the transverse mesocolon and into the lesser sac. No pseudocyst formation. No extraluminal gas. SPLEEN: Unremarkable. Her H/H on admission was 9.4/29.0 with 640,000 platelets. She is currently feeling comfortable. She denies nausea, or vomiting or significant abdominal pain. Allergies/Medications Allergies: Coded Allergies: clams (Mild, NAUSEA 11/08/17) tomato (Mild, NAUSEA 02/15/18) RAW TOMATOS Home Med List: Acetaminophen (Tylenol Extra Strength) 500 MG TABLET 1 TAB PO DAILY PRN muscle aches (Reported) Amlodipine Bes/Olmesartan Med (Amlodipine-Olmesartan 5-20 MG) 5 MG-20 MG TABLET 1 TAB PO DAILY HEART (Reported) Anagrelide HCl 1 MG CAPSULE 1 CAP PO TID THROMBOCYTOSIS (Reported) Fexofenadine HCl (Zofia Allergy) 180 MG TABLET 1 TAB PO DAILY PRN nasal allergies (Reported) Fluticasone Propionate 50 MCG/ACTUATION SPRAY.SUSP 2 SPRAY NASB DAILY PRN ALLERGIES (Reported) Furosemide (Lasix) 20 MG TABLET 1 TAB PO DAILY FLUID RETENTION Levothyroxine Sodium (Synthroid) 75 MCG TABLET 1 TAB PO Q48 THYROID HEALTH ( Reported) Levothyroxine Sodium (Synthroid) 88 MCG TABLET 1 TAB PO Q48 THYROID HEALTH Metoprolol Tartrate (Lopressor) 100 MG TABLET 1 TAB PO BID Atrial Fibrilliation Montelukast Sodium (Singulair) 10 MG TABLET 1 TAB PO QHS nasal allergies ( Reported) Pantoprazole Sodium 40 MG TABLET.DR 1 TAB PO DAILY ACID REFLUX Simvastatin (Simvastatin*) 40 MG TABLET 1 TAB PO DAILY HEART HEALTH Warfarin Sodium (Coumadin) 5 MG TABLET 0.5 TAB PO SuTh BLOOD THINNER ( Reported) Warfarin Sodium (Coumadin) 5 MG TABLET 1 TAB PO MoTuWeFrSa BLOOD THINNER ( Reported) Current Medications: Current Medications Sig/Benita Start time Last Medication Dose Route Stop Time Status Admin Acetaminophen 650 MG .STK-MED ONE 02/16 0334 DC PO 02/16 0335 Acetaminophen 650 MG Q8P PRN 02/15 1715 AC 02/16 PO 0439 Acetaminophen 0 .STK-MED ONE 02/15 1340 DC IV Atorvastatin Calcium 40 MG 0 02/16 1700 DC PO Atorvastatin Calcium 40 MG 1700 02/15 2215 AC PO Fluticasone 2 SPRAY DAILY PRN 02/15 1715 AC Propionate DARYN Heparin Sodium 5,000 UNIT Q8 02/15 2200 CAN (Porcine) SC Lactated Ringer's 1,000 ML Q10H 02/16 0945 AC 02/16 IV 1049 Levothyroxine Sodium 0.088 MG Q48@02/17 0700 AC PO Levothyroxine Sodium 0.075 MG Q48@0700 02/16 0700 AC 02/16 PO 0601 Metoprolol Tartrate 100 MG BID 02/15 2200 AC 02/16 PO 0807 Montelukast Sodium 10 MG AT BEDTIME 02/15 2200 AC 02/15 PO 2053 Omeprazole 40 MG DAILY AC 02/16 0700 AC 02/16 PO 0600 Sodium Chloride 250 ML .Q1H 02/16 0845 DC IV Sodium Chloride 1,000 ML Q10H 02/16 0530 AC 02/16 IV 02/16 1529 0531 Sodium Chloride 1,000 ML Q10H 02/15 1715 DC 02/15 IV 02/16 0314 1810 Sodium Chloride 1,000 ML ONCE ONE 02/15 1545 DC 02/15 IV 02/15 1944 1549 Sodium Chloride 1,000 ML BOLUS ONE 02/15 1215 DC 02/15 IV 02/15 1414 1340 Tramadol HCl 50 MG Q8P PRN 02/15 1715 AC PO Warfarin Sodium 5 MG COUMADIN 1700 ONE 02/15 1715 DC 02/15 PO 02/15 1716 1814 Past History Travel History Traveled to [place] past 21 day No Medical History Blood Transfusion Hx: Yes Neurological: NONE EENT: NONE Cardiovascular: AFIB, VALVE REPLACEMENT Respiratory: NONE Gastrointestinal: NONE Hepatic: NONE Renal: chronic kidney disease Musculoskeletal: L MASTECTOMY Psychiatric: NONE Endocrine: NONE Blood Disorders: essential thrombocythemia Cancer(s): breast cancer 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 Psychosocial History Where Do You Live? Home Services at Home: None Smoking Status: Never Smoked ETOH Use: occasional use Illicit Drug Use: denies illicit drug use Functional Ability ADLs Independent: dressing, eating, toileting, bathing. Ambulation: independent IADLs Unknown: shopping, housework, finances, food prep, telephone, transportation, medication admin. Review of Systems Review of Systems Constitutional: Reports: no symptoms. EENTM: Reports: no symptoms. Cardiovascular: Reports: see HPI. Respiratory: Reports: see HPI. GI: Reports: abdominal pain. Genitourinary: Reports: no symptoms. Musculoskeletal: Reports: no symptoms. Skin: Reports: no symptoms. Neurological/Psychological: Reports: no symptoms. Hematologic/Endocrine: Reports: no symptoms. Immunologic/Allergic: Reports: no symptoms. Exam & Diagnostic Data Vital Signs and I&O Vital Signs Date Time Temp Pulse Resp B/P B/P Pulse O2 O2 Flow FiO2 Mean Ox Delivery Rate 02/16 0807 75 136/72 02/16 0634 98.2 76 18 132/72 95 Room Air 02/16 0000 Room Air 02/15 2232 98.0 92 16 148/60 96 02/15 2053 90 150/84 02/15 1811 97.6 83 18 170/87 100 Room Air 02/15 1800 97 Room Air 02/15 1711 96.8 87 19 183/85 96 Room Air 02/15 1232 98.2 89 20 135/80 99 Room Air Intake & Output 02/16 1600 02/16 0400 02/15 1600 02/15 0400 02/14 1600 02/14 0400 Intake Total 800 150 Output Total 450 Balance 800 -300 Intake, IV 800 Intake, Oral 150 Number 0 Bowel Movements Output, Urine 450 Patient 186 lb 180 lb Weight Weight Bed scale Reported by Patient Measurement Method Physical Exam General Appearance: well developed/nourished, no apparent distress, alert, awake , comfortable Head: atraumatic, normal appearance Eyes: Bilateral: normal appearance. Ears, Nose, Throat: hearing grossly normal Neck: normal inspection, supple, full range of motion Respiratory: normal breath sounds, chest non-tender, no respiratory distress, lungs clear Cardiovascular: regular rate/rhythm, normal S1 and S2, II/ Systolic Murmur, no rub or gallob Breasts S/P Left Mastectomy Gastrointestinal: normal bowel sounds, soft, no organomegaly, Mild LUQ Tenderness without Rebound or Guarding Extremities: normal inspection, no edema Neurologic/Psych: oriented x 3, normal mood/affect Cranial Nerves: Cranial Nerves II-XII Grossly Intact Skin: intact, normal color, warm/dry Results Pertinent Lab Results: Laboratory Tests 02/16 02/16 0654 0653 Chemistry Sodium (137 - 145 mmol/L) 142 Potassium (3.5 - 5.1 mmol/L) 4.7 Chloride (98 - 107 mmol/L) 109 H Carbon Dioxide (22 - 30 mmol/L) 21 L Anion Gap (5 - 16) 12 BUN (7 - 17 mg/dL) 18 H Creatinine (0.5 - 1.0 mg/dL) 0.9 Estimated GFR (>60 ml/min) > 60 BUN/Creatinine Ratio (7 - 25 %) 20.0 Coagulation PT (9.4 - 12.5 SEC) 37.4 H INR (0.90 - 1.19) 3.39 H Hematology CBC w Diff NO MAN DIFF REQ WBC (4.8 - 10.8 /CUMM) 13.7 H RBC (4.20 - 5.40 /CUMM) 3.27 L Hgb (12.0 - 16.0 G/DL) 9.2 L Hct (37 - 47 %) 28.1 L MCV (81.0 - 99.0 FL) 85.8 MCH (27.0 - 31.0 PG) 28.2 MCHC (33.0 - 37.0 G/DL) 32.9 L RDW (11.5 - 14.5 %) 19.8 H Plt Count (130 - 400 /CUMM) 594 H MPV (7.4 - 10.4 FL) 8.5 Gran % (42.2 - 75.2 %) 69.9 Lymphocytes % (20.5 - 51.1 %) 19.6 L Monocytes % (1.7 - 9.3 %) 6.3 Eosinophils % (0 - 5 %) 3.6 Basophils % (0.0 - 2.0 %) 0.6 Absolute Granulocytes (1.4 - 6.5 /CUMM) 9.6 H Absolute Lymphocytes (1.2 - 3.4 /CUMM) 2.7 Absolute Monocytes (0.10 - 0.60 /CUMM) 0.9 H Absolute Eosinophils (0.0 - 0.7 /CUMM) 0.5 Absolute Basophils (0.0 - 0.2 /CUMM) 0.1 03/21 1050 Chemistry Sodium (137 - 145 mmol/L) 139 Potassium (3.5 - 5.1 mmol/L) 4.7 Chloride (98 - 107 mmol/L) 105 Carbon Dioxide (22 - 30 mmol/L) 21 L Anion Gap (5 - 16) 13 BUN (7 - 17 mg/dL) 23 H Creatinine (0.5 - 1.0 mg/dL) 1.0 Estimated GFR (>60 ml/min) 54 L BUN/Creatinine Ratio (7 - 25 %) 23.0 Glucose (65 - 99 mg/dL) 215 H Lactic Acid (0.7 - 2.1 mmol/L) 1.2 Calcium (8.4 - 10.2 mg/dL) 9.0 Total Bilirubin (0.2 - 1.3 mg/dL) 0.5 AST (14 - 36 U/L) 22 ALT (9 - 52 U/L) 17 Alkaline Phosphatase (<127 U/L) 67 Lactate Dehydrogenase (313 - 618 U/L) 738 H Troponin I (< 0.11 ng/ml) < 0.01 Total Protein (6.3 - 8.2 g/dL) 5.9 L Albumin (3.5 - 5.0 g/dL) 3.3 L Globulin (1.9 - 4.2 gm/dL) 2.6 Albumin/Globulin Ratio (1.1 - 2.2 %) 1.3 Triglycerides (<150 mg/dL) 88 Cholesterol (<200 MG/DL) 116 LDL Cholesterol, Calc (65 - 129 MG/DL) 47 L HDL Cholesterol (40 - 60 mg/dL) 52 Cholesterol/HDL Ratio (0.00 - 4.23 %) 2.2 Amylase (30 - 110 U/L) 276 H Lipase (23 - 300 U/L) 4936 H Coagulation PT (9.4 - 12.5 SEC) 29.3 H INR (0.90 - 1.19) 2.66 H APTT (25 - 37 SEC) 35 Hematology CBC w Diff MAN DIFF ORDERED WBC (4.8 - 10.8 /CUMM) 15.1 H RBC (4.20 - 5.40 /CUMM) 3.41 L Hgb (12.0 - 16.0 G/DL) 9.4 L Hct (37 - 47 %) 29.0 L MCV (81.0 - 99.0 FL) 85.3 MCH (27.0 - 31.0 PG) 27.5 MCHC (33.0 - 37.0 G/DL) 32.3 L RDW (11.5 - 14.5 %) 19.4 H Plt Count (130 - 400 /CUMM) 640 H MPV (7.4 - 10.4 FL) 8.2 Gran % (42.2 - 75.2 %) 72.1 Lymphocytes % (20.5 - 51.1 %) 18.1 L Monocytes % (1.7 - 9.3 %) 6.2 Eosinophils % (0 - 5 %) 3.0 Basophils % (0.0 - 2.0 %) 0.6 Absolute Granulocytes (1.4 - 6.5 /CUMM) 10.9 H Absolute Lymphocytes (1.2 - 3.4 /CUMM) 2.7 Absolute Monocytes (0.10 - 0.60 /CUMM) 0.9 H Absolute Eosinophils (0.0 - 0.7 /CUMM) 0.5 Absolute Basophils (0.0 - 0.2 /CUMM) 0.1 Platelet Estimate (ADEQUATE) Polychromasia Hypochromic-Microcytic 1+ Poikilocytosis 2+ Anisocytosis 2+ Ovalocytes Assessment/Plan Assessment/Recommendations: ASSESSMENT: 1. Acute Pancreatitis -- likely related to dose increase in Anagrelide 2. Essential Thrombocytosis 3. S/P Aortic Valve Replacement 4. Paroxysmal Atrial Fibrillation RECOMMENDATIONS: 1. Patient is comfortable and eager to eat. Would davance to clears and gradually as tolerated 2. Would d/c anagrelide and speak with her wind energy mechanic, Dr. Mares regarding new medication for Thrombocytosis. 3. If patient able to tolerate diet and no further symtpoms, would consider discharge with close follow up with hemtology. Would not discharge unless hematology has been contacted regarding anagrelide. Consult Acknowledgment - Thank you for your consult request.
[2018-02-16 13:49] VITALS: BP 160/78
[2018-02-16 15:51] VITALS: BP 156/74
[2018-02-16 21:29] VITALS: BP 172/74
[2018-02-17 06:30] VITALS: BP 143/81
--- NOTE | 2018-02-17 07:13 | PN- Housestaff ---
Oksana PERRY,Isabelle 02/17/18 0712: Subjective Follow-up For: #1 acute pancreatitis #2 essential thrombocytosis #3 hypothyroidism #4 atrial fibrillation (paroxysmal) #5 history of hypothyroidism #6 hypertension #7 hyperlipidemia #8 leukocytosis- likely MPD. Tele-Events Since Last Visit: Normal sinus rhythm, 7283, 0.08, 0.1, no overnight events Subjective: Patient was seen and examined at bedside, she denies any complaints, no overnight events Review of Systems Constitutional: Reports: see HPI. Objective Last 24 Hrs of Vital Signs/I&O Vital Signs Date Time Temp Pulse Resp B/P B/P Pulse O2 O2 Flow FiO2 Mean Ox Delivery Rate 02/17 0828 134/68 02/17 0826 134/68 02/17 0825 134/68 02/17 0630 98.3 87 18 143/81 93 02/16 2130 105 172/74 02/16 2129 105 172/74 02/16 1600 Room Air 02/16 1554 74 156/74 02/16 1551 74 156/74 02/16 1349 97.4 84 18 160/78 97 Room Air Intake & Output 02/17 1600 02/17 0800 02/17 0000 Intake Total 1000 1544 Output Total Balance 1000 1544 Intake, IV 600 800 Intake, Oral 400 744 Patient 186 lb Weight Physical Exam General Appearance: Alert, Oriented X3, Cooperative, No Acute Distress HEENT: Atraumatic, PERRLA, EOMI, Mucous Membr. moist/pink Neck: Supple, No JVD Cardiovascular: Normal S1, Normal S2, No Murmurs Lungs: Clear to Auscultation Abdomen: Normal Bowel Sounds, Soft, No Tenderness Neurological: Normal Speech, Strength at 5/5 X4 Ext, Normal Tone, Sensation Intact Extremities: No Clubbing, No Cyanosis, No Edema Vascular: Normal Pulses Assessment/Plan Assessment: 77 year old woman with PMHx of AVR (bovine valve 2013 at [facility]), left breast cancer s/p mastectomy + adj chemo(dx'ed 20 yrs ago), HTN, HLD, ET/ MPN (dx'ed 10 yrs ago, initially on Hydroxyurea, and was started on Anagrelide ), chronic anemia 2/2 hydroxyurea/anagrelide, paroxysmal atrial fibrillation ( dx'ed 10/2017 on Warfarin), who came to the hospital with a chief concern of "indigestion" that started 4 days ago likely due to acute pancreatitis, most likely secondary to anagrelide, CT abdomen showed swollen head and neck of the pancreas, with evidence of elevated pancreatic fluid collection, effusion dissects into the root of the mesentery Problem list: #acute pancreatitis-possibly side effect of anagrelide #essential thrombocytosis #hypothyroidism #atrial fibrillation (paroxysmal) #history of hypothyroidism #hypertension #hyperlipidemia #leukocytosis- likely MPN. #lung nodules Plan: #Continue to monitor on telemetry #DC IV fluids, encourage oral intake #continue her metoprolol, to avoid rebound tachycardia #Continue Norvasc 5 mg daily Hemoglobin A1c was found to be elevated at 7.1 #Advance diet to consistent carbohydrate was low-sodium and low-fat #Cardiology and GI recommendation appreciated #Hold Coumadin . INR 3.59 #continue her home dose of levothyroxine. #Fingerstick glucose were normal #Oncology consult was placed however Dr. Young over the phone recommended to speak directly to her shotgun shell loading machine operator Dr.Glen Tidwell to discuss with him about discontinuing her anagrelide #hold for anagrelide, had a discussion with her shotgun shell loading machine operator over the phone and he agrees, will follow up outpatient I called her oncologist today and updated him that the patient will be discharged home today and he recommended that she follows up with him outpatient in 1 week of discharge #adequate pain control, with tramadol and Tylenol. Avoid morphine in pancreatitis The patient is stable to be discharged home today DVT prophylaxis-ALPS GI prophylaxis-protonix CODE STATUS-full code Problem List: 1. Pancreatitis 2. Anemia Pain Ratin Pain Location: N/A Pain Goal: Remain pain free Pain Plan: PATHWAY Tomorrow's Labs & Rationales: N/A Vinny Thomas 02/17/18 1545: Attending MD Review Statement Attending Statement Attending MD Statement: examined this patient, discuss w/resident/PA/SALES PROMOTION REPRESENTATIVE, agreed w/resident/PA/SALES PROMOTION REPRESENTATIVE, reviewed EMR data (avail), discussed with nursing, discussed with case mgmt Attending Assessment/Plan: Pt being dced today in stable condition. Pt was made aware of her new diagnosed DM and was educated on diabetic diet. Pt was also told to follow low fat diet . Pt will f/u with GI as an outpatient. Pts anagrelide was stopped and her shotgun shell loading machine operator is going to start her on a different med for essential thrombocytosis.
--- NOTE | 2018-02-17 08:12 | Cons- Hematology ---
General Information and HPI Consulting Request Date of Consult: 02/17/18 Requested By: Vinny Thomas MD Reason for Consult: MPN, pancreatitis Source of Information: patient, old records Exam Limitations: no limitations History of Present Illness: Ms Olivier is a 77-year-old female with history of AVR (bovine valve 2013 at [facility]), left breast cancer s/p mastectomy and adjuvant chemotherapy, HTN, HLD, ET/MPN, chronic anemia, paroxysmal atrial fibrillation on warfarin who presented to the hospital with decreased appetite and epigastric abdominal pain. She symptoms started about a week prior to coming to the hospital. Pain was worse with eating. It did improve with Tylenol. Due to the pain and nausea, she called her customer acquisition specialist who sent her to the ER for evaluation. In the ED, she had CT scan demonstrating acute pancreatitis. Lipase was elevated at 4936. She was admitted and started on IVF and kept NPO. She is slowly improving. She does use alcohol and drinks 2-3 times a week. She did have a recent change in her anagrelide dosing in December for her MPN. She was previously taking 2 tablets a day and is now taking 3 tablets a day in 12/2017. 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 This was changed to anagrelide due to progression of her disease. She denies any other recent changes or new medications. Allergies/Medications Allergies: Coded Allergies: clams (Mild, NAUSEA 11/08/17) tomato (Mild, NAUSEA 02/15/18) RAW TOMATOS Home Med List: Acetaminophen (Tylenol Extra Strength) 500 MG TABLET 1 TAB PO DAILY PRN muscle aches (Reported) Amlodipine Bes/Olmesartan Med (Amlodipine-Olmesartan 5-20 MG) 5 MG-20 MG TABLET 1 TAB PO DAILY HEART (Reported) Anagrelide HCl 1 MG CAPSULE 1 CAP PO TID THROMBOCYTOSIS (Reported) Fexofenadine HCl (Zofai Allergy) 180 MG TABLET 1 TAB PO DAILY PRN nasal allergies (Reported) Fluticasone Propionate 50 MCG/ACTUATION SPRAY.SUSP 2 SPRAY NASB DAILY PRN ALLERGIES (Reported) Furosemide (Lasix) 20 MG TABLET 1 TAB PO DAILY FLUID RETENTION Levothyroxine Sodium (Synthroid) 75 MCG TABLET 1 TAB PO Q48 THYROID HEALTH ( Reported) Levothyroxine Sodium (Synthroid) 88 MCG TABLET 1 TAB PO Q48 THYROID HEALTH Metoprolol Tartrate (Lopressor) 100 MG TABLET 1 TAB PO BID Atrial Fibrilliation Montelukast Sodium (Singulair) 10 MG TABLET 1 TAB PO QHS nasal allergies ( Reported) Pantoprazole Sodium 40 MG TABLET.DR 1 TAB PO DAILY ACID REFLUX Simvastatin (Simvastatin*) 40 MG TABLET 1 TAB PO DAILY HEART HEALTH Warfarin Sodium (Coumadin) 5 MG TABLET 0.5 TAB PO SuTh BLOOD THINNER ( Reported) Warfarin Sodium (Coumadin) 5 MG TABLET 1 TAB PO MoTuWeFrSa BLOOD THINNER ( Reported) Current Medications: Current Medications Sig/Benita Start time Last Medication Dose Route Stop Time Status Admin Acetaminophen 650 MG Q8P PRN 02/15 1715 AC 02/16 PO 0439 Amlodipine Besylate 5 MG DAILY 02/16 1435 AC 02/16 PO 1554 Atorvastatin Calcium 40 MG 1700 02/15 2215 AC 02/16 PO 1555 Fluticasone 2 SPRAY DAILY PRN 02/15 1715 AC Propionate DARYN Lactated Ringer's 1,000 ML Q10H 02/16 0945 VA 02/16 IV 2136 Levothyroxine Sodium 0.088 MG Q48@0700 02/17 0700 02/17 PO 0700 Levothyroxine Sodium 0.075 MG Q48@0700 02/16 0700 02/16 PO 0601 Metoprolol Tartrate 100 MG BID 02/15 2200 AC 02/16 PO 2130 Montelukast Sodium 10 MG AT BEDTIME 02/15 2200 AC 02/16 PO 2130 Omeprazole 40 MG DAILY AC 02/16 0700 AC 02/17 PO 0700 Sodium Chloride 250 ML .Q1H 02/16 0845 DC IV Sodium Chloride 1,000 ML Q10H 02/16 0530 DC 02/16 IV 02/16 1529 0531 Tramadol HCl 50 MG Q8P PRN 02/15 1715 02/16 PO 2133 Review of Systems Review of Systems Constitutional: Reports: weakness. Denies: chills, fever. Cardiovascular: Denies: chest pain. Respiratory: Denies: short of breath. GI: Reports: abdominal pain, nausea. Denies: constipation, diarrhea. Genitourinary: Denies: dysuria. Neurological/Psychological: Denies: confusion. Hematologic/Endocrine: Denies: bruising, bleeding. 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 Psychosocial History Where Do You Live? Home Services at Home: None Smoking Status: Never Smoked ETOH Use: occasional use Illicit Drug Use: denies illicit drug use Functional Ability ADLs Independent: dressing, eating, toileting, bathing. Ambulation: independent IADLs Unknown: shopping, housework, finances, food prep, telephone, transportation, medication admin. Exam & Diagnostic Data Vital Signs and I&O Vital Signs Date Time Temp Pulse Resp B/P B/P Pulse O2 O2 Flow FiO2 Mean Ox Delivery Rate 02/16 213 105 172/74 02/16 2129 105 172/74 02/16 1600 Room Air 02/16 1554 74 156/74 02/16 1551 74 156/74 02/16 1349 97.4 84 18 160/78 97 Room Air 02/16 0807 75 136/72 Intake & Output 02/17 0800 02/17 0000 02/16 1600 Intake Total 1000 1544 1700 Output Total Balance 1000 1544 1700 Intake, IV 389 730 9072 Intake, Oral 400 744 400 Patient 84.453 kg Weight Physical Exam General Appearance: well developed/nourished, no apparent distress, alert, awake , comfortable Head: atraumatic, normal appearance Eyes: Bilateral: PERRL, EOMI. Respiratory: normal breath sounds, chest non-tender, no respiratory distress Cardiovascular: regular rate/rhythm, murmur Gastrointestinal: normal bowel sounds, soft, no organomegaly, tenderness ( epigastric) Neurologic/Psych: no motor/sensory deficits, alert, oriented x 3 Last 48 Hours of Lab Results: Laboratory Tests 02/16 02/16 0654 0653 Chemistry Sodium (137 - 145 mmol/L) 142 Potassium (3.5 - 5.1 mmol/L) 4.7 Chloride (98 - 107 mmol/L) 109 H Carbon Dioxide (22 - 30 mmol/L) 21 L Anion Gap (5 - 16) 12 BUN (7 - 17 mg/dL) 18 H Creatinine (0.5 - 1.0 mg/dL) 0.9 Estimated GFR (>60 ml/min) > 60 BUN/Creatinine Ratio (7 - 25 %) 20.0 Hemoglobin A1c (4.2 - 5.8 %) 7.1 H Coagulation PT (9.4 - 12.5 SEC) 37.4 H INR (0.90 - 1.19) 3.39 H Hematology CBC w Diff NO MAN DIFF REQ WBC (4.8 - 10.8 /CUMM) 13.7 H RBC (4.20 - 5.40 /CUMM) 3.27 L Hgb (12.0 - 16.0 G/DL) 9.2 L Hct (37 - 47 %) 28.1 L MCV (81.0 - 99.0 FL) 85.8 MCH (27.0 - 31.0 PG) 28.2 MCHC (33.0 - 37.0 G/DL) 32.9 L RDW (11.5 - 14.5 %) 19.8 H Plt Count (130 - 400 /CUMM) 594 H MPV (7.4 - 10.4 FL) 8.5 Gran % (42.2 - 75.2 %) 69.9 Lymphocytes % (20.5 - 51.1 %) 19.6 L Monocytes % (1.7 - 9.3 %) 6.3 Eosinophils % (0 - 5 %) 3.6 Basophils % (0.0 - 2.0 %) 0.6 Absolute Granulocytes (1.4 - 6.5 /CUMM) 9.6 H Absolute Lymphocytes (1.2 - 3.4 /CUMM) 2.7 Absolute Monocytes (0.10 - 0.60 /CUMM) 0.9 H Absolute Eosinophils (0.0 - 0.7 /CUMM) 0.5 Absolute Basophils (0.0 - 0.2 /CUMM) 0.1 03/21 1050 Chemistry Sodium (137 - 145 mmol/L) 139 Potassium (3.5 - 5.1 mmol/L) 4.7 Chloride (98 - 107 mmol/L) 105 Carbon Dioxide (22 - 30 mmol/L) 21 L Anion Gap (5 - 16) 13 BUN (7 - 17 mg/dL) 23 H Creatinine (0.5 - 1.0 mg/dL) 1.0 Estimated GFR (>60 ml/min) 54 L BUN/Creatinine Ratio (7 - 25 %) 23.0 Glucose (65 - 99 mg/dL) 215 H Lactic Acid (0.7 - 2.1 mmol/L) 1.2 Calcium (8.4 - 10.2 mg/dL) 9.0 Total Bilirubin (0.2 - 1.3 mg/dL) 0.5 AST (14 - 36 U/L) 22 ALT (9 - 52 U/L) 17 Alkaline Phosphatase (<127 U/L) 67 Lactate Dehydrogenase (313 - 618 U/L) 738 H Troponin I (< 0.11 ng/ml) < 0.01 Total Protein (6.3 - 8.2 g/dL) 5.9 L Albumin (3.5 - 5.0 g/dL) 3.3 L Globulin (1.9 - 4.2 gm/dL) 2.6 Albumin/Globulin Ratio (1.1 - 2.2 %) 1.3 Triglycerides (<150 mg/dL) 88 Cholesterol (<200 MG/DL) 116 LDL Cholesterol, Calc (65 - 129 MG/DL) 47 L HDL Cholesterol (40 - 60 mg/dL) 52 Cholesterol/HDL Ratio (0.00 - 4.23 %) 2.2 Amylase (30 - 110 U/L) 276 H Lipase (23 - 300 U/L) 4936 H Coagulation PT (9.4 - 12.5 SEC) 29.3 H INR (0.90 - 1.19) 2.66 H APTT (25 - 37 SEC) 35 Hematology CBC w Diff MAN DIFF ORDERED WBC (4.8 - 10.8 /CUMM) 15.1 H RBC (4.20 - 5.40 /CUMM) 3.41 L Hgb (12.0 - 16.0 G/DL) 9.4 L Hct (37 - 47 %) 29.0 L MCV (81.0 - 99.0 FL) 85.3 MCH (27.0 - 31.0 PG) 27.5 MCHC (33.0 - 37.0 G/DL) 32.3 L RDW (11.5 - 14.5 %) 19.4 H Plt Count (130 - 400 /CUMM) 640 H MPV (7.4 - 10.4 FL) 8.2 Gran % (42.2 - 75.2 %) 72.1 Lymphocytes % (20.5 - 51.1 %) 18.1 L Monocytes % (1.7 - 9.3 %) 6.2 Eosinophils % (0 - 5 %) 3.0 Basophils % (0.0 - 2.0 %) 0.6 Absolute Granulocytes (1.4 - 6.5 /CUMM) 10.9 H Absolute Lymphocytes (1.2 - 3.4 /CUMM) 2.7 Absolute Monocytes (0.10 - 0.60 /CUMM) 0.9 H Absolute Eosinophils (0.0 - 0.7 /CUMM) 0.5 Absolute Basophils (0.0 - 0.2 /CUMM) 0.1 Platelet Estimate (ADEQUATE) Polychromasia Hypochromic-Microcytic 1+ Poikilocytosis 2+ Anisocytosis 2+ Ovalocytes Imaging/Other Studies: CT abdomen/pelvis without contrast 02/15/2018: Acute pancreatitis with spread of pancreatic effusions as described above. No complications present at this time. Assessment/Plan Assessment: Ms Olivier is a 77-year-old female with history of AVR (bovine valve 2013 at [facility]), left breast cancer s/p mastectomy and adjuvant chemotherapy, HTN, HLD, ET/MPN, chronic anemia, paroxysmal atrial fibrillation on warfarin who presented to the hospital with decreased appetite and epigastric abdominal pain. She was found to have acute pancreatitis. It is unclear of the etiology. She does use alcohol but only mild to moderate usage. Medication induced pancreatitis is likely given recent changes in anagrelide. Anagrelide has been know to cause pancreatitis but rarely. She may have this held for now and will need to discuss with her office specialist regarding holding it and alternatives for outpatient. Recommendations: Acute pancreatitis: -monitor for now -advance diet as tolerated -hold anagrelide MPN: -contact primary office specialist regarding holding anagrelide and alternative -f/u with Dr. Tidwell after discharge Problem List: 1. Pancreatitis 2. MPN (myeloproliferative neoplasm) Other Findings/Comments: Please call [phone] with any questions or concerns. Consult Acknowledgment - Thank you for your consult request.
[2018-02-17 08:28] VITALS: BP 134/68
[2018-02-17 09:03] LABS: ABSOLUTE BASOPHIL COUNT 0.1 /CUMM (0.0-0.2); ABSOLUTE EOSINOPHIL COUNT 0.4 /CUMM (0.0-0.7); ABSOLUTE GRANULOCYTE CT 9.6 /CUMM (1.4-6.5); ABSOLUTE LYMPH COUNT 2.2 /CUMM (1.2-3.4); ABSOLUTE MONOCYTE COUNT 0.8 /CUMM (0.10-0.60); BASOPHIL % 0.7 % (0.0-2.0); EOSINOPHIL % 3.1 % (0-5); GRANULOCYTE % 73.3 % (42.2-75.2); HEMATOCRIT 27.3 % (37-47); MEAN CORPUSCULAR HGB 27.7 PG (27.0-31.0); MEAN CORPUSCULAR HGB CONC 32.7 G/DL (33.0-37.0); MEAN CORPUSCULAR VOLUME 84.7 FL (81.0-99.0); PLATELET COUNT 603 /CUMM (130-400); RBC DISTRIBUTION WIDTH 19.3 % (11.5-14.5); RED BLOOD CELL CT 3.22 /CUMM (4.20-5.40); WHITE BLOOD CELL COUNT 13.1 /CUMM (4.8-10.8)
[2018-02-17 11:11] LABS: PT 39.6 SEC (9.4-12.5)
--- NOTE | 2018-02-17 11:13 | PN- Cardiology ---
Subjective Subjective: Patient is resting comfortably. No chest pain or dyspnea. No palpitations. Objective Vital Signs and I&Os Vital Signs Date Time Temp Pulse Resp B/P B/P Pulse O2 O2 Flow FiO2 Mean Ox Delivery Rate 02/17 0828 134/68 02/17 0826 134/68 02/17 0825 134/68 02/17 0630 98.3 87 18 143/81 93 02/16 2130 105 172/74 02/16 2129 105 172/74 02/16 1600 Room Air 02/16 1554 74 156/74 02/16 1551 74 156/74 02/16 1349 97.4 84 18 160/78 97 Room Air Intake & Output 02/17 1600 02/17 0800 02/17 0000 02/16 1600 02/16 0800 02/16 0000 Intake Total 1000 1544 1700 800 150 Output Total 450 Balance 1000 1544 1700 800 -300 Intake, IV 339 356 0891 800 Intake, Oral 400 744 400 150 Number 0 Bowel Movements Output, Urine 450 Patient 186 lb 186 lb Weight Weight Bed scale Measurement Method Physical Exam: General: no apparent distress. Alert. Eyes: No obvious scleral icterus. HEENT: No jugular venous distention or abnormal jugular venous pulsations. Cardiovascular: Normal intensity S1/S2. Regular Respiratory: Lungs clear to auscultation bilaterally. Abdomen: Soft, nontender with no guarding or rebound tenderness. Musculoskeletal: No clubbing or cyanosis noted, 1+ lower extremity edema bilaterally Skin: No obvious rashes or ulcerations. Neurologic: No gross focal deficits noted. Lymph: No gross lymphadenopathy. Current Medications: Current Medications Sig/Benita Start time Last Medication Dose Route Stop Time Status Admin Acetaminophen 650 MG Q8P PRN 02/15 1715 AC 02/16 PO 0439 Amlodipine Besylate 5 MG DAILY 02/16 1435 AC 02/17 PO 0826 Atorvastatin Calcium 40 MG 1700 02/15 2215 AC 02/16 PO 1555 Fluticasone 2 SPRAY DAILY PRN 02/15 1715 AC Propionate DARYN Lactated Ringer's 1,000 ML Q10H 02/16 0945 DC 02/16 IV 2136 Levothyroxine Sodium 0.088 MG Q48@0702/17 0700 AC 02/17 PO 0700 Levothyroxine Sodium 0.075 MG Q48@0702/16 0700 AC 02/16 PO 0601 Metoprolol Tartrate 100 MG BID 02/15 2200 AC 02/17 PO 0825 Montelukast Sodium 10 MG AT BEDTIME 02/15 2200 AC 02/16 PO 2130 Omeprazole 40 MG DAILY AC 02/16 0700 AC 02/17 PO 0700 Sodium Chloride 1,000 ML Q10H 02/16 0530 DC 02/16 IV 02/16 1529 0531 Tramadol HCl 50 MG Q8P PRN 02/15 1715 AC 02/16 PO 2133 Results Last 48 Hrs of Labs/Mics: Laboratory Tests 02/17/18 1040: PT Pending, INR Pending 02/17/18 0850: Anion Gap 13, Estimated GFR > 60, BUN/Creatinine Ratio 14.4, Phosphorus 3.2, Magnesium 1.9, CBC w Diff NO MAN DIFF REQ, RBC 3.22 L, MCV 84.7, MCH 27.7, MCHC 32.7 L, RDW 19.3 H, MPV 8.0, Gran % 73.3, Lymphocytes % 16.6 L, Monocytes % 6.3, Eosinophils % 3.1, Basophils % 0.7, Absolute Granulocytes 9.6 H, Absolute Lymphocytes 2.2, Absolute Monocytes 0.8 H, Absolute Eosinophils 0.4, Absolute Basophils 0.1 02/16/18 0654: CBC w Diff NO MAN DIFF REQ, RBC 3.27 L, MCV 85.8, MCH 28.2, MCHC 32.9 L, RDW 19.8 H, MPV 8.5, Gran % 69.9, Lymphocytes % 19.6 L, Monocytes % 6.3, Eosinophils % 3.6, Basophils % 0.6, Absolute Granulocytes 9.6 H, Absolute Lymphocytes 2.7, Absolute Monocytes 0.9 H, Absolute Eosinophils 0.5, Absolute Basophils 0.1 02/16/18 0653: Anion Gap 12, Estimated GFR > 60, BUN/Creatinine Ratio 20.0, Hemoglobin A1c 7.1 H, PT 37.4 H, INR 3.39 H Recent Imaging Studies: Telemetry tracings were personally reviewed and shows sinus rhythm with a short supraventricular burst Assessment/Plan Assessment/Plan #1 acute pancreatitis probably drug-related. I doubt amlodipine/olmersartan that she is taking for hypertension would cause this. Possibly related to anagrelide. #2. Status post aortic bioprosthetic valve. Normal left ventricular systolic function. #3. Paroxysmal atrial fibrillation. Now in sinus rhythm #4. On oral anticoagulation with warfarin PT/INR is therapeutic #5. Hypertension #6. Hyperlipidemia #7. Thrombocytosis Remains hemodynamically stable. Remains in sinus rhythm with no sustained arrhythmias noted on telemetry. Continue adjusting Coumadin to target INR. Cardiology will sign off; please do not hesitate to contact me with any further questions or concerns. Jay Gill MD [facility] Continue telemetry? No
--- NOTE | 2018-02-17 11:29 | Patient Discharge Instructions ---
Discharge Instructions General Discharge Information You were seen/treated for: #1 acute pancreatitis #2 essential thrombocytosis #3 hypothyroidism #4 atrial fibrillation (paroxysmal) #5 history of hypothyroidism #6 hypertension #7 hyperlipidemia #8 leukocytosis- likely MPD. Special Instructions: 1please follow-up with your PCP in 1 week of discharge 2please follow-up with your laster hand in 1 week of discharge 3please follow-up with your automation analyst in 1 week of discharge 4please get your INR checked in 2 days of discharge and dose Coumadin accordingly 5-hold coumadin tonight and take half tab tomorrow on Tuesday Diet Continue normal diet: No Recommended Diet: Diabetic, Low Fat Activity Full Activity/No Limits: Yes Acute Coronary Syndrome Inclusion Criteria At DC or during hospital stay patient has or had the following: ACS DIAGNOSIS No Discharge Core Measures Meds if any: Prescribed or Continued at Discharge Meds if any: NOT Prescribed or Continued at Discharge Congestive Heart Failure Inclusion Criteria At DC or during hospital stay patient has or had the following: CHF DIAGNOSIS No Discharge Core Measures Meds if any: Prescribed or Continued at Discharge Meds if any: NOT Prescribed or Continued at Discharge Cerebrovascular accident Inclusion Criteria At DC or during hospital stay patient has or had the following: CVA/TIA Diagnosis No Discharge Core Measures Meds if any: Prescribed or Continued at Discharge Meds if any: NOT Prescribed or Continued at Discharge Venous thromboembolism Inclusion Criteria VTE Diagnosis No VTE Type NONE VTE Confirmed by (Test) NONE Discharge Core Measures - Per Current guidelines, there needs to be overlap - treatment for the first 5 days of Warfarin therapy. - If discharged on Warfarin prior to 5 days of - overlap therapy, the patient will need to be - assessed for post discharge needs including - *Post discharge parental anticoagulation - *Warfarin and/or parental anticoagulation education - *Follow up date to check INR post discharge At least 5 days overlap therapy as Inpatient No Meds if any: Prescribed or Continued at Discharge Note: Overlap Therapy is Warfarin and Anticoagulant Meds if any: NOT Prescribed or Continued at Discharge
--- NOTE | 2018-02-17 11:32 | Discharge Summary ---
Visit Information Visit Dates Admission Date: 02/15/18 Discharge Date: 02/17/18 Hospital Course Course Attending Physician: Martha PERRY,Vinny [place] Primary Care Physician: Mik PERRY,[facility] Hospital Course: Ms Olivier is a 77 year old woman with PMHx of AVR (bovine valve 2013 at [facility]), left breast cancer s/p mastectomy + adj chemo(dx'ed 20 yrs ago), HTN, HLD, ET/MPN (dx'ed 10 yrs ago, initially on Hydroxyurea, and was started on Anagrelide 06/2017), chronic anemia 2/2 hydroxyurea/anagrelide, paroxysmal atrial fibrillation ( dx'ed 10/2017 on Warfarin), who came to the hospital with a chief concern of "indigestion" that started 4 days prior to admission Reported occassional alcohol( a glass of wine ) use 2-3 x/wk, no tobacco use, or has history of gall stones. Reported that she was started on anagrelide in , and frequency was increased recently. Labs on admission were significant for WBC 15.1, platelets 640, hemoglobin 9.4, sodium 139, potassium 4.7, BUN 23, creatinine 1, glucose 215, LDH 738, amylase 276, lipase [address] showed: Acute pancreatitis with spread of pancreatic effusions as described above. No complications present at this time. Lung nodules as described on the CTA of 11/08/2017, no change. Abdominal ultrasound: Mild prominence of the pancreatic duct which measures 0.3 cm at the level of the pancreatic body. Otherwise unremarkable abdominal ultrasound. Patient was admitted to telemetry floor for treatment of the following conditions: #Acute pancreatitis-possibly side effect of Anagrelide #Was initially treated with IV fluids, when the patient started oral intake, IV fluids were discontinued after 2 days #Anagrelide was held #adequate pain control, with tramadol and Tylenol. Avoid morphine in pancreatitis #Advanced diet, patient tolerated oral intake well #Cardiology and GI were on board #Atrial fibrillation (paroxysmal) #Coumadin was held as his INR was supratherapeutic (above 3) to prevent to the possibility of hemorrhagic pancreatitis #continued her metoprolol, to avoid rebound tachycardia #History of hypothyroidism #continued her home dose of levothyroxine. #Hypertension, hyperlipidemia #Kept on home dose of amlodipine, Lasix and ARB, Statin #Increased HBA1c #Blood sugar on admission was 215, hemoglobin A1c was elevated 7.1, patient was advised to start diabetic diet and to follow-up with her PCP as outpatient #Essential thrombocytosis #Oncology consult was placed however Dr. Young over the phone recommended to speak directly to her canteen attendant Dr.Glen Tidwell to discuss with him about discontinuing her Anagrelide #Anagrelide was held, had a discussion with her canteen attendant over the phone and he agrees, will follow up outpatient, and canteen attendant will decide whether to restart Anagrelide over switch her to another medication for thrombocytosis #Hypothyroidism: Was treated home dose of levothyroxine #Lung nodules #Accidentally discovered lung nodule Lung nodules as described on the CTA of 11/08/2017, no change. to follow-up with her PCP as outpatient #leukocytosis- likely MPN. DVT prophylaxis-ALPS GI prophylaxis-protonix CODE STATUS-full code Allergies: Coded Allergies: clams (Mild, NAUSEA 11/08/17) tomato (Mild, NAUSEA 02/15/18) RAW TOMATOS Disposition Summary Disposition Principal Diagnosis: #Acute pancreatitis-possibly side effect of Anagrelide Additional Diagnosis: #Atrial fibrillation (paroxysmal) Discharge Disposition: home or self care Discharge Instructions General Discharge Information Code Status: Full Code Patient's Diet: consistent carbohydrate, with low fat and sodium Patient's Activity: As tolerated Follow-Up Instructions/Appts: 1please follow-up with your PCP in 1 week of discharge 2please follow-up with your labour market economist in 1 week of discharge 3please follow-up with your canteen attendant in 1 week of discharge 4please get your INR checked in 2 days of discharge and dose Coumadin accordingly 5-hold coumadin tonight and take half tab tomorrow on Tuesday Medications at Discharge Discharge Medications: Stop taking the following medications: Anagrelide HCl (Anagrelide HCl) 1 MG CAPSULE ORAL THREE TIMES DAILY Qty = 30 Continue taking these medications: Fexofenadine HCl (Zofia Allergy) 180 MG TABLET 1 Tablet ORAL DAILY as needed for nasal allergies Qty = 30 Comments: NOT GIVEN IN HOSPITAL Acetaminophen (Tylenol Extra Strength) 500 MG TABLET 1 Tablet ORAL DAILY as needed for muscle aches Qty = 30 Comments: Last Taken: 11/16/17 Time: 2056 Levothyroxine Sodium (Synthroid) 75 MCG TABLET 1 Tablet ORAL EVERY 48 HOURS (Every 2 days) Qty = 30 Comments: Last Taken: 02/16/18 Time: 520 Montelukast Sodium (Singulair) 10 MG TABLET 1 Tablet ORAL TAKE AT BEDTIME Qty = 30 Comments: Last Taken: 11/16/17 Time: 2050 Levothyroxine Sodium (Synthroid) 88 MCG TABLET 1 Tablet ORAL EVERY 48 HOURS (Every 2 days) Qty = 30 Comments: Last Taken: 02/17/18 Time: 608 Pantoprazole Sodium (Pantoprazole Sodium) 40 MG TABLET.DR 1 Tablet ORAL DAILY Qty = 30 Comments: GIVEN PRILOSEC IN HOSPITAL Last Taken: 02/17/18 Time: 520 Simvastatin (Simvastatin*) 40 MG TABLET 1 Tablet ORAL DAILY Qty = 30 Comments: GIVEN LIPITOR IN HOSPITAL Last Taken: 02/16/18 Time: 1653 Furosemide (Lasix) 20 MG TABLET 1 Tablet ORAL DAILY Qty = 30 Comments: Last Taken: 11/17/17 Time: 923 Metoprolol Tartrate (Lopressor) 100 MG TABLET 1 Tablet ORAL TWICE DAILY Qty = 60 Comments: Last Taken: 02/17/18 Time: 924 Fluticasone Propionate (Fluticasone Propionate) 50 MCG/ACTUATION SPRAY.SUSP 2 [place] Both sides of nose DAILY as needed for ALLERGIES Qty = 16 Warfarin Sodium (Coumadin) 5 MG TABLET 0.5 Tablet ORAL SuTh Warfarin Sodium (Coumadin) 5 MG TABLET 1 Tablet ORAL MoTuWeFrSa Amlodipine Bes/Olmesartan Med (Amlodipine-Olmesartan 5-20 MG) 5 MG-20 MG TABLET 1 Tablet ORAL DAILY Qty = 30 Comments: Last Taken:02/17/18 Time:1000 Copies To: Mik PERRY,Angelica
== END 2018-02-17 15:10 | DRG 440 ==
LOC: ERH 10:29 → 1NO 15:07 → ERHI 15:07 → ENRESERV 15:59 → ENTRNSPT 17:25 → CMPTRNSPT 17:51 → 1NO 17:52
PROVIDERS: Emergency Medicine; Internal Medicine Endocrinology, Diabetes & Metabolism; Student in an Organized Health Care Education/Training Program
DX: K85.30 Drug induced acute pancreatitis without necrosis or infection (principal); I48.0 Paroxysmal atrial fibrillation; I08.1 Rheumatic disorders of both mitral and tricuspid valves; D47.3 Essential (hemorrhagic) thrombocythemia; T50.995A Adverse effect of other drugs, medicaments and biological substances, initial encounter; Z85.3 Personal history of malignant neoplasm of breast; D72.829 Elevated white blood cell count, unspecified; Z79.01 Long term (current) use of anticoagulants; Z90.12 Acquired absence of left breast and nipple; I12.9 Hypertensive chronic kidney disease with stage 1 through stage 4 chronic kidney disease, or unspecified chronic kidney disease; N18.9 Chronic kidney disease, unspecified; E03.9 Hypothyroidism, unspecified; E78.5 Hyperlipidemia, unspecified; R91.8 Other nonspecific abnormal finding of lung field; Z91.013 Allergy to seafood; Z91.018 Allergy to other foods; Z95.3 Presence of xenogenic heart valve; Z92.21 Personal history of antineoplastic chemotherapy
CPT/HCPCS: 1NSP; 36415; 36592; 74176; 82436; 93005; 93010; J0131; J7040; J7120